=== PATIENT | female | born 1945 | race Caucasian/White ===

== ENCOUNTER → 2022-03-13 | Outpatient (CLI) | payer MEDICARE ==
--- NOTE | 2022-03-13 17:10 | US ---
EXAMINATION TYPE: US kidneys/renal and bladder DATE OF EXAM: 03/13/2022 COMPARISON: NONE CLINICAL HISTORY: R35.0 FREQUENCY OF MICTURITION. Left flank pain, gross hematuria EXAM MEASUREMENTS: Right Kidney: 9.2 x 4.2 x 3.9 cm Left Kidney: 9.3 x 3.4 x 5.4 cm Right Kidney: cysts = largest superior pole = 3.0 x 3.3 x 3.1cm Left Kidney: superior pole cyst 1.6 x 1.6 x 1.6cm. 9mm stone seen inferior pole Bladder: wnl There is no evidence for hydronephrosis at this point in time. No masses are identified. The urinar y bladder is anechoic. IMPRESSION: 1. No evidence of obstructive uropathy. 2. Nonobstructing left renal calculus.
== END | disposition home or self-care (01) ==
LOC: RADUSWWP 16:32
PROVIDERS: ATTEND Family Medicine
DX: N20.0 Calculus of kidney (principal)
CPT/HCPCS: 76770

== ENCOUNTER → 2022-03-21 | Outpatient (CLI) | payer MEDICARE ==
--- NOTE | 2022-03-21 14:09 | XR ---
EXAMINATION TYPE: XR KUB DATE OF EXAM: 03/21/2022 Comparison: None Clinical History: 77-year-old female N20.0 CALCULUS OF KIDNEY Findings: Moderate overall stool burden. Left-sided renal calculi measuring up to 6 mm. Larger aggregate cluste r measures up to 1.4 cm. Multiple pelvic phleboliths. Degenerative change L4-L5. Nonobstructive bowel gas pattern. Impression: Left-sided nephrolithiasis with individual stones measuring up to 6 mm. Moderate stool burden.
== END | disposition home or self-care (01) ==
LOC: RADXRMAIN 09:20
PROVIDERS: ATTEND Urology
DX: N20.0 Calculus of kidney (principal); R19.5 Other fecal abnormalities
CPT/HCPCS: 74018

== ENCOUNTER → 2022-04-06 | Outpatient (CLI) | payer MEDICARE ==
[2022-04-06 15:34] LABS: African American GFR (CKD) 42.5 (60.0-200.0); Anion Gap 13.8 mmol/L (10.00-18.00); BUN/Creat Ratio 29.57 Ratio (12.00-20.00); Blood Urea Nitrogen 41.4 mg/dL (9.0-27.0); Carbon Dioxide 21.2 mmol/L (20.0-27.5); Non-African American GFR(CKD) 36.7 (60.0-200.0); Potassium 4.6 mmol/L (3.5-5.5)
[2022-04-06 16:53] LABS: Basophils # (A) 0.01 X 10*3/uL (0.00-0.10); Basophils % (A) 0.1 %; Eosinophils # (A) 0.05 X 10*3/uL (0.04-0.35); Eosinophils % (A) 0.7 %; HCT 34.9 % (37.2-46.3); HGB 11.5 g/dL (12.0-15.0); Immature Grans, Automated 0.3 %; Lymphocytes # (A) 1.61 X 10*3/uL (0.90-5.00); Lymphocytes % (A) 21.2 %; MCV 100.3 fL (80.0-97.0); Mean Platelet Volume 10.5 fL (9.5-12.2); Monocytes # (A) 0.43 X 10*3/uL (0.20-1.00); Monocytes % (A) 5.7 %; NRBC Per 100 WBC 0 /100 WBCS (0.0-0.0); Neutrophils # (A) 5.48 X 10*3/uL (1.80-7.70); Platelet Count 311 X 10*3/uL (140-440); RBC 3.48 X 10*6/uL (4.10-5.20); RDW 12.3 % (11.5-14.5)
== END | disposition home or self-care (01) ==
LOC: LABWHC1 08:48
PROVIDERS: ATTEND Urology
DX: Z01.812 Encounter for preprocedural laboratory examination (principal); N20.0 Calculus of kidney
CPT/HCPCS: 80048; 85025

== ENCOUNTER 2022-04-13 05:37 | Day surgery (SDC) | payer MEDICARE ==
[2022-04-10 15:32] VITALS: BMI 19.3
--- NOTE | 2022-04-12 19:43 | P.GSHP ---
History of Present Illness H&P Date: 04/12/22 Chief Complaint: Left flank pain the patient is a 77-year-old white female with no prior history of urolithiasis. She presents with a one-month history of left lower back and flank pain. She also reports gross hematuria with activity. Renal ultrasound shows left renal calculi, but no evidence of hydronephrosis. KUB x-ray shows left renal calculi measuring up to 6 mm in size, with an aggregate of calculi measuring 1.4 cm. - Constitutional Constitutional: Denies chills, Denies fever - Gastrointestinal Gastrointestinal: Denies nausea, Denies vomiting - Genitourinary (Female) Genitourinary: Reports flank pain, Reports hematuria, Reports kidney stones Past Medical History Past Medical History: Thyroid Disorder Additional Past Medical History / Comment(s): Kidney stones History of Any Multi-Drug Resistant Organisms: None Reported Past Surgical History: Hysterectomy Additional Past Surgical History / Comment(s): Lasik surgery, carpal tunnel, thumb surgery, L breast bx. Past Anesthesia/Blood Transfusion Reactions: Motion Sickness Additional Past Anesthesia/Blood Transfusion Reaction / Comment(s): Gets dizzy with anesthesia. Smoking Status: Never smoker - Past Family History Mother Family Medical History: No Reported History Medications and Allergies Home Medications Medication Instructions Recorded Confirmed Type Ergocalciferol [Vitamin D2 (1250 1,250 mcg PO Q30D 04/10/22 04/10/22 History Mcg = 39133 Iu)] Fexofenadine HCl [Manjula Allergy] 60 mg PO DAILY PRN 04/10/22 04/10/22 History Ketorolac [Toradol] 10 mg PO Q6HR PRN 04/10/22 04/10/22 History Levothyroxine Sodium [Levoxyl] 88 mcg PO SUMOWEFRSA 04/10/22 04/10/22 History Allergies Allergy/AdvReac Type Severity Reaction Status Date / Time alendronate sodium Allergy Rash/Hives Verified 04/10/22 15:17 [From Fosamax] codeine Allergy Rash/Hives Verified 04/10/22 15:17 levothyroxine sodium Allergy Rash/Hives Verified 04/10/22 15:17 [From Synthroid] Sulfa (Sulfonamide Allergy Rash/Hives Verified 04/10/22 15:17 Antibiotics) Surgical - Exam - General well developed, well nourished, no distress - Neck no masses, trachea midline - Respiratory normal respiratory effort - Abdomen Abdomen: soft, non tender, no guarding, no rigid, no rebound - Psychiatric oriented to time, oriented to person, oriented to place, speech is normal, memory intact Results - Imaging Abdominal x-ray: report reviewed, image reviewed US - kidney/bladder: report reviewed Assessment and Plan (1) Calculus of kidney Status: Acute Code(s): N20.0 - CALCULUS OF KIDNEY SNOMED Code(s): 01314463 Plan: The patient was offered various treatment options, including observation, extracorporal shockwave lithotripsy (ESWL), ureteroscopy with holmium laser lithotripsy, and percutaneous nephrolithotomy. The pros and cons of each option were discussed in detail. The patient has elected to undergo left ureteroscopy with holmium laser lithotripsy and possible stone basketing. A ureteral stent will be placed. She has been made aware of potential risks, which include anesthesia, bleeding, infection, ureteral injury, and inability to remove all calculi. She is aware of the possible need for secondary procedure.
[2022-04-13] MEDS ORDERED: ONDANSETRON 4 MG/2 ML VIAL ONE (06:43)
[2022-04-13] MEDS ORDERED: LACTATED RINGERS 1,000 ML IV ONE ×3 (06:48→11:51)
[2022-04-13] MEDS ORDERED: LIDOCAINE 1% (10MG/ML) FOR IV START INTRADERMA ONE (06:48)
--- NOTE | 2022-04-13 06:53 | XR ---
EXAMINATION TYPE: XR KUB DATE OF EXAM: 04/13/2022 6:28 AM CLINICAL HISTORY: Left-sided kidney stone. TECHNIQUE: Single supine KUB image of the abdomen is obtained. COMPARISON: Most recent abdominal x-ray March 21, 2022. FINDINGS: There are 3-4 adjacent left renal calculi including 8 mm calculus at L2 level. No right-drew ed nephrolithiasis. Interval passage of 8 mm calculus to distal left ureter level in the left pelvis. Scattered small pelvic phleboliths redemonstrated. Overall nonobstructive bowel gas pattern. Disc space narrowing and sclerosis right L4-L5 level. IMPRESSION: As above. Overall nonobstructive bowel gas pattern.
[2022-04-13] MEDS ORDERED: DEXAMETHASONE SOD PHOSPHATE 4 MG/ML 1 ML VIAL IV ONE (07:00)
[2022-04-13] MEDS ORDERED: LEVOFLOXACIN 500MG-D5W PMX 500 MG in DEXTROSE/WATER 1 100ML.BAG IVPB STA (07:01)
[2022-04-13 07:07] LABS: Glucose,Whole Blood 77 mg/dL (70-110)
[2022-04-13] MEDS ORDERED: fentaNYL (PF) 50 MCG/ML 2 ML AMP ONE (07:10)
[2022-04-13] MEDS ORDERED: PROPOFOL 10 MG/ML 20 ML VIAL IV ONE (07:10)
[2022-04-13] MEDS ORDERED: MIDAZOLAM 2 MG/2 ML VIAL ONE (07:10)
[2022-04-13] MEDS ORDERED: GLYCOPYRROLATE 0.2 MG/ML 2 ML VIAL ONE (07:10)
[2022-04-13] MEDS ORDERED: LIDOCAINE 2% INJ 20 MG/ML (2 ML VIAL) ONE (07:10)
[2022-04-13] MEDS ORDERED: PHENYLEPHRINE-0.9% NACL SYG 1,000 MCG/10 ML SYRINGE ONE (07:10)
[2022-04-13] MEDS ORDERED: SUCCINYLCHOLINE CHLORIDE 200 MG/10 ML VIAL IV ONE (07:10)
[2022-04-13] MEDS ORDERED: IOPAMIDOL-370 50ML BTL MISCELLANE ONE (07:41)
[2022-04-13 09:26] VITALS: TEMP 97
--- NOTE | 2022-04-13 10:21 | FL ---
Fluoroscopy INDICATION: Pain, ureteral stent placement FINDINGS: Fluoroscopy time: 2 minutes 12 seconds. Images obtained: 12. Note is made of a filling defect within the distal left ureter. IMPRESSIONS: 1. Documentation of fluoroscopy.
[2022-04-13] MEDS ORDERED: HYDROmorphone 0.5 MG/0.5 ML SYRINGE IVP ONE (13:48)
[2022-04-13 14:29] VITALS: BP 142/72; PULSE 66; RESP 17
--- NOTE | 2022-04-15 14:47 | P.OP ---
Date of Procedure: 04/13/22 Preoperative Diagnosis: Left ureteral calculus, left renal calculi Postoperative Diagnosis: Same Procedure(s) Performed: Cystoscopy, bilateral retrograde pyelograms, left ureteroscopy with Holmium laser lithotripsy and stone basketing, left ureteral stent insertion Anesthesia: DOMINICKA Surgeon: Ayan Ramirez Estimated Blood Loss (ml): 10 IV fluids (ml): 800 Pathology: other (Calculus fragments, sent for chemical analysis) Condition: stable Disposition: PACU Indications for Procedure: The patient is a 77-year-old white female with no prior history of urolithiasis. She presents with a one-month history of left lower back and flank pain. She also reports gross hematuria with activity. Renal ultrasound shows left renal calculi, but no evidence of hydronephrosis. KUB x-ray shows left renal calculi measuring up to 6 mm in size, with an aggregate of calculi measuring 1.4 cm. Pre-operative KUB x-ray shows a left distal ureteral calculus. Operative Findings: 8 mm left distal ureteral calculus, fragmented and removed completely. Multiple left lower pole renal calculi, fragmented and removed Description of Procedure: The patient was taken to the operating room and placed in the dorsolithotomy position, with legs supported in Ranulfo stirrups. The external genitalia was prepped and draped sterilely. The 30 lens was used to introduce the 21-Indian Cha cystoscopic sheath through the urethra and into the bladder under direct vision. The bladder was examined in its entirety. Both ureteral orifices were normal anatomic location and configuration, and clear urine effluxed from both. No tumors or foreign bodies were seen. Using a 10-Indian cone-tipped catheter, bilateral retrograde pyelograms were performed. The right retrograde pyelogram was normal. The left retrograde py elogram confirmed that the left pelvic calcification was indeed a left distal ureteral calculus. The cystoscope was removed, and the Cha semirigid ureteroscope was advanced into the bladder. The left ureteral orifice was cannulated, and the ureteroscope was advanced up to the calculus. The 272 holmium laser probe was passed through the ureteroscope, and lithotripsy was performed. Virtual basketing was used to prevent the calculus from refluxing proximally, and as fragments broke away from the calculus they were removed using a 1.9-Indian nitinol basket. This was continued until the calculus had been removed in its entirety. Evaluation of the ureter showed mild mucosal inflammation, no evidence of ureteral perforation. A 0.038 inch Glidewire was passed through the ureteroscope and advanced up to the left renal pelvis. The ureteroscope was removed, and an 11/13-Indian ureteral access catheter was passed over the wire, up to the proximal ureter. The Cha Clickpassra flexible ureteroscope was then passed through the ureteral access catheter sheath and advanced under direct vision up to the renal pelvis. Several old clots were seen. Multiple calculi were seen within 2 lower pole calyces. No calculi were seen elsewhere in the kidney. The 272 micron Holmium laser probe was passed through the ureteroscope, and lithotripsy was performed. The calculi were treated using a combination of dusting and fragmenting, and all calculus fragments exceeding 1 mm in size were removed using a 1.9-Indian nitinol basket. Fluoroscopy upon completion showed no residual calculi. Once the calculi had been successfully removed, the ureteroscope was slowly withdrawn under direct vision. Pullout ureteroscopy showed no evidence of ureteral trauma. The Glidewire was passed through the ureteral access catheter sheath, which was removed. The Glidewire was backloaded into the cystoscope, which was advanced into the bladder. A 24 cm, 6-Indian double-J ureteral stent was placed over the wire. Proper stent positioning was verified fluoroscopically and endoscopically. The bladder was emptied and the cystoscope removed. The patient tolerated the procedure well and was taken to the recovery room in stable condition. [facility] Report: Procedure Acuity: Elective Stone Size and Location: 8 mm, left distal ureter. Multiple left renal calculi. Ureteral Dilation: No Ureteral Access Sheath Used: Yes Stone Sent for Analysis: Yes All Stones/Fragments Were Removed with a Basket: Yes Complications: No Preoperative Antibiotics Given: Yes Stent Placed: Yes If Stent Placed, Was String Left Attached: No If Stent Placed, When is it to be Removed: 2 weeks Discharge Medications: Tamsulosin, Toradol. Tolterodine
== END 2022-04-13 14:30 | disposition home or self-care (01) ==
LOC: OR 05:37
PROVIDERS: ATTEND Urology
DX: N20.2 Calculus of kidney with calculus of ureter (principal); E07.9 Disorder of thyroid, unspecified; Z98.890 Other specified postprocedural states; Z87.442 Personal history of urinary calculi; Z90.710 Acquired absence of both cervix and uterus; I87.8 Other specified disorders of veins; Z79.1 Long term (current) use of non-steroidal anti-inflammatories (NSAID); Z79.899 Other long term (current) drug therapy; Z88.2 Allergy status to sulfonamides; Z88.5 Allergy status to narcotic agent; Z88.8 Allergy status to other drugs, medicaments and biological substances; Z79.890 Hormone replacement therapy
CPT/HCPCS: 52356; 82365; 74420; 74018; C2625; C1758; C1769; J2250; J0330; J1100; J0690; J2405; J3010; J2370; J2704; J1170; Q9967; J2001

== ENCOUNTER → 2022-04-19 | Outpatient (CLI) | payer MEDICARE ==
--- NOTE | 2022-04-19 11:02 | XR ---
EXAMINATION TYPE: XR KUB DATE OF EXAM: 04/19/2022 COMPARISON: 04/13/2022 INDICATION: Left renal stone TECHNIQUE: Single view abdomen supine view FINDINGS: There is a normal bowel gas pattern. Fecal debris is within the colon. Psoas margins are normal. No organomegaly is present. There is a double pigtail catheter present on the left. No suspicious renal or ureteral stones are id entified. Punctate 0.3 cm calcification adjacent to the distal ureteral stent is not excluded. IMPRESSION: 1. 0.3 cm residual calcification may be within the left hemipelvis adjacent to the ureteral stent.
== END | disposition home or self-care (01) ==
LOC: RADXRMAIN 07:30
PROVIDERS: ATTEND Urology
DX: N20.0 Calculus of kidney (principal)
CPT/HCPCS: 74018

== ENCOUNTER 2022-05-01 11:02 | Emergency (ER) | payer MEDICARE ==
[2022-05-01 11:20] VITALS: RESP 18
[2022-05-01 11:31] LABS: Glucose,Whole Blood 110 mg/dL (70-110)
--- NOTE | 2022-05-01 12:15 | ED ---
General Adult HPI - General Chief complaint: Dizziness Stated complaint: Near syncope Time Seen by Provider: 05/01/22 11:40 Source: patient Mode of arrival: EMS Limitations: no limitations - History of Present Illness Initial comments: Dictation was produced using Lala dictation software. please excuse any grammatical, word or spelling errors. Chief Complaint: 77-year-old female presents emergency department after presyncopal episode History of Present Illness: Is 77-year-old female with no significant comorbidities. She states she was at home when she had a presyncopal event. She had this event while home health care nurse was at the house tending to her is currently on effusions. Patient states that recently she had a urologic procedure done. She denies any complications or issues afterward. She woke up feeling in her usual state of health. Patient denies any history of cardiac disease. Patient denies any full loss of consciousness. Blood pressure was checked by the home visiting nurse found to be low for brief state. Patient denies any symptoms at this time The ROS documented in this emergency department record has been reviewed and confirmed by me. Those systems with pertinent positive or negative responses have been documented in the HPI. All other systems are other negative and/or noncontributory. PHYSICAL EXAM: General Impression: Alert and oriented x3, not in acute distress HEENT: Normocephalic atraumatic, extra-ocular movements intact, pupils equal and reactive to light bilaterally, mucous membranes moist. Cardiovascular: Heart regular rate and rhythm Chest: Able to complete full sentences, no retractions, no tachypnea Abdomen: abdomen soft, non-tender, non-distended, no organomegaly Musculoskeletal: Pulses present and equal in all extremities, no peripheral edema Motor: no focal deficits noted Neurological: CN II-XII grossly intact, no focal motor or sensory deficits noted Skin: Intact with no visualized rashes Psych: Normal affect and mood ED course: 77-year-old female presents emergency department for episode of presyncope. Likely vasovagal. She does not have any cardiac risk factors. EKG is unremarkable. Vital signs upon arrival are within acceptable limits. Nursing notes and chart review was performed EKG interpreted by me: Ventricular rate 100, normal sinus rhythm,. Interval 112, QRS 64, QTc 459. No NJ prolongation, no QTC prolongation, no ST or T-wave changes noted. Overall, this EKG is unremarkable Laboratory evaluation obtained. CBC unremarkable. Metabolic panel is within acceptable limits. Rest of labs unremarkable. Patient observed in emergency department for 2 hours and 30 minutes. Reevaluated at bedside at 1:3 PM found with stable medical condition. Patient be discharged. Advised follow-up with primary care doctor. Was pt. sent in by a medical professional or institution? @No Did you speak to anyone other than the patient for history? @Daughter at the bedside Did you review nursing and triage notes? @Yes, agree Were old charts reviewed? @No Differential Diagnosis? @MDM Differential Syncope: Valvular disease, hypertrophic cardiomyopathy, pulmonary embolism, tamponade, tachycardia, bradycardia, ID, hypovolemia, hemorrhage, dissection, anemia, intracranial hemorrhage, seizure, hypoglycemia, carbon monoxide poisoning this is not meant to be an all-inclusive list. EKG interpreted by me (3pts min.)? @Yes, see above X-rays interpreted by me (1pt min.)? @ [none] CT interpreted by me (1pt min.)? @ [none] U/S interpreted by me (1pt. min.)? @ [none] What testing was considered but not performed? (CT, X-rays, U/S, labs)? Why? @No What meds were considered but not given? Why? @ [none] Did you discuss the management of the patient with other professionals? @No Did you reconcile home meds? @ [none] Was smoking cessation discussed for >3mins.? @ [none] Was critical care preformed (if so, how long)? @ [none] Were there social determinants of health that impacted care today? How? (Homelessness, low income, unemployed, alcoholism, drug addiction, transportation, low edu. Level, literacy, decrease access to med. care, assisted, rehab)? @No Was there de-escalation of care discussed even if they declined? (Discuss DNR or withdrawal of care, Hospice)? @Not applicable What co-morbidities impacted this encounter? (DM, HTN, Smoking, COPD, CAD, Can cer, CVA, Hep., AIDS, mental health diagnosis, sleep apnea, morbid obesity)? @None Was patient admitted / discharged? @Discharge Undiagnosed new problem with uncertain prognosis? @ [none] Drug Therapy requiring intensive monitoring for toxicity (Heparin, Nitro, Insulin, Cardizem)? @ [none] Were any procedures done? @ [none] Diagnosis/symptom? @Presyncope, likely vasovagal Acute, or Chronic, or Acute on Chronic? @Acute Uncomplicated (without systemic symptoms) or Complicated (systemic symptoms)? @Uncomplicated Side effects of treatment? @ [none] Exacerbation, Progression, or Severe Exacerbation] @ [no] Poses a threat to life or bodily function? @ [no] - Related Data Home Medications Medication Instructions Recorded Confirmed Ergocalciferol [Vitamin D2 (1250 1,250 mcg PO Q30D 04/10/22 05/01/22 Mcg = 22645 Iu)] Fexofenadine HCl [Manjula Allergy] 60 mg PO DAILY PRN 04/10/22 05/01/22 Levothyroxine Sodium [Levoxyl] 88 mcg PO DAILY 04/10/22 05/01/22 Ascorbic Acid [Vitamin C] 2,000 mg PO DAILY 05/01/22 05/01/22 Aspirin EC [Ecotrin Low Dose] 81 mg PO DAILY 05/01/22 05/01/22 Biotin 2000mg 2,000 mg PO DAILY 05/01/22 05/01/22 Calcifood 1 tab PO BID 05/01/22 05/01/22 Yrn Seeds 1 tbsp PO DAILY 05/01/22 05/01/22 Co Q-10 100mg 100 mg PO DAILY 05/01/22 05/01/22 Cranberry Fruit Extract [Cranberry] 400 mg PO DAILY 05/01/22 05/01/22 Flax Seed 1300mg 1 cap PO DAILY 05/01/22 05/01/22 Devon Prime 1 cap PO DAILY 05/01/22 05/01/22 Pro-Symbiotic 1 cap PO DAILY 05/01/22 05/01/22 Quercetin 800mg 1 tab PO BID 05/01/22 05/01/22 Turmeric Root Extract [Turmeric] 750 mg PO BID 05/01/22 05/01/22 Zinc Gluconate [Zinc] 50 mg PO DAILY 05/01/22 05/01/22 Previous Rx's Medication Instructions Recorded Tamsulosin [Flomax] 0.4 mg PO DAILY #21 cap 04/13/22 Tolterodine ER [Detrol LA] 4 mg PO DAILY #21 cap 04/13/22 Allergies Allergy/AdvReac Type Severity Reaction Status Date / Time alendronate sodium Allergy Rash/Hives Verified 05/01/22 12:22 [From Fosamax] cephalexin [From Keflex] Allergy Rash/Hives Verified 05/01/22 12:22 levothyroxine sodium Allergy Immediate Verified 05/01/22 12:22 [From Synthroid] migraine headaches Sulfa (Sulfonamide Allergy Rash/Hives, Verified 05/01/22 12:22 Antibiotics) Swelling, Lumps codeine AdvReac Loss of Verified 05/01/22 12:22 eyesight risedronate sodium AdvReac Muscle, Verified 05/01/22 12:22 [From Actonel] jaw and tooth pain estrogen patch AdvReac "Sugar Uncoded 05/01/22 12:22 level problems" Review of Systems ROS Statement: Those systems with pertinent positive or pertinent negative responses have been documented in the HPI. ROS Other: All systems not noted in ROS Statement are negative. Past Medical History Past Medical History: Thyroid Disorder Additional Past Medical History / Comment(s): Kidney stones History of Any Multi-Drug Resistant Organisms: None Reported Past Surgical History: Hysterectomy Additional Past Surgical History / Comment(s): Lasik surgery, carpal tunnel, thumb surgery, L breast bx. Past Anesthesia/Blood Transfusion Reactions: Motion Sickness Additional Past Anesthesia/Blood Transfusion Reaction / Comment(s): Gets dizzy with anesthesia. Past Psychological History: No Psychological Hx Reported Smoking Status: Never smoker Past Alcohol Use History: None Reported Past Drug Use History: None Reported - Past Family History Mother Family Medical History: No Reported History General Exam Limitations: no limitations Course Vital Signs 05/01/22 05/01/22 11:07 11:20 Temperature 97.6 F Pulse Rate 98 96 Respiratory 18 18 Rate Blood Pressure 107/77 O2 Sat by Pulse 100 100 Oximetry Medical Decision Making - Lab Data Result diagrams: 05/01/22 11:29 05/01/22 11:29 Lab Results 05/01/22 05/01/22 05/01/22 Range/Units 11:27 11:29 11:29 WBC 4.7 (3.8-10.6) k/uL RBC 3.42 L (3.80-5.40) m/uL Hgb 11.7 (11.4-16.0) gm/dL Hct 33.3 L (34.0-46.0) % MCV 97.5 (80.0-100.0) fL MCH 34.2 (25.0-35.0) pg MCHC 35.1 (31.0-37.0) g/dL RDW 12.6 (11.5-15.5) % Plt Count 224 (150-450) k/uL MPV 8.7 Neutrophils % 69 % Lymphocytes % 25 % Monocytes % 5 % Eosinophils % 1 % Basophils % 0 % Neutrophils # 3.2 (1.3-7.7) k/uL Lymphocytes # 1.2 (1.0-4.8) k/uL Monocytes # 0.2 (0-1.0) k/uL Eosinophils # 0.0 (0-0.7) k/uL Basophils # 0.0 (0-0.2) k/uL Sodium 136 L (137-145) mmol/L Potassium 3.9 (3.5-5.1) mmol/L Chloride 106 (98-107) mmol/L Carbon Dioxide 23 (22-30) mmol/L Anion Gap 7 mmol/L BUN 29 H (7-17) mg/dL Creatinine 0.88 (0.52-1.04) mg/dL Est GFR (CKD-EPI)AfAm 75 (>60 ml/min/1.73 sqM) Est GFR (CKD-EPI)NonAf 65 (>60 ml/min/1.73 sqM) Glucose 102 H (74-99) mg/dL POC Glucose (mg/dL) 110 (70-110) mg/dL POC Glu Manager Of Business ID Tita Card[place]ota Calcium 9.0 (8.4-10.2) mg/dL Total Bilirubin 0.6 (0.2-1.3) mg/dL AST 26 (14-36) U/L ALT 19 (4-34) U/L Alkaline Phosphatase 72 (38-126) U/L Total Protein 6.7 (6.3-8.2) g/dL Albumin 4.3 (3.5-5.0) g/dL TSH 0.055 L (0.465-4.680) mIU/L Disposition Clinical Impression: Syncope Disposition: HOME SELF-CARE Condition: Good Instructions (If sedation given, give patient instructions): Syncope (ED) Is patient prescribed a controlled substance at d/c from ED?: No Referrals: Doroteo Abraham MD [Primary Care Provider] - 1-2 days Time of Disposition: 13:31
[2022-05-01 12:24] LABS: Basophils % (A) 0 %; Eosinophils % (A) 1 %; HCT 33.3 % (34.0-46.0); HGB 11.7 gm/dL (11.4-16.0); Lymphocytes # (A) 1.2 k/uL (1.0-4.8); Lymphocytes % (A) 25 %; MCH 34.2 pg (25.0-35.0); MCHC 35.1 g/dL (31.0-37.0); MCV 97.5 fL (80.0-100.0); Mean Platelet Volume 8.7; Monocytes # (A) 0.2 k/uL (0-1.0); Monocytes % (A) 5 %; Neutrophils # (A) 3.2 k/uL (1.3-7.7); Neutrophils % (A) 69 %; Platelet Count 224 k/uL (150-450); RBC 3.42 m/uL (3.80-5.40); RDW 12.6 % (11.5-15.5); WBC 4.7 k/uL (3.8-10.6)
[2022-05-01 12:30] LABS: Albumin 4.3 g/dL (3.5-5.0); Potassium 3.9 mmol/L (3.5-5.1); Total Bilirubin 0.6 mg/dL (0.2-1.3); Total Protein 6.7 g/dL (6.3-8.2)
[2022-05-01 13:31] VITALS: BP 114/64; PULSE 87
[2022-05-01 13:55] VITALS: TEMP 97.4
== END 2022-05-01 13:40 | disposition home or self-care (01) ==
LOC: SUPCPDRO 11:02 → EC 11:02
DX: R55 Syncope and collapse (principal); E07.9 Disorder of thyroid, unspecified; Z88.8 Allergy status to other drugs, medicaments and biological substances; Z88.2 Allergy status to sulfonamides; Z79.890 Hormone replacement therapy; Z79.82 Long term (current) use of aspirin
CPT/HCPCS: 36415; 80053; 84443; 85025; 93005; 99284

== ENCOUNTER → 2022-06-02 | Outpatient (CLI) | payer MEDICARE ==
--- NOTE | 2022-06-02 07:48 | US ---
EXAMINATION TYPE: US kidneys/renal and bladder DATE OF EXAM: 06/02/2022 COMPARISON: Renal ultrasound March 13, 2022 CLINICAL HISTORY: N20.1 N20.0. hx renal stones and cysts. EXAM MEASUREMENTS: Right Kidney: 10.2 x 3.7 x 3.3 cm Left Kidney: 8.9 x 3.4 x 3.6 cm Right Kidney: Two cysts seen. 1- Superior lateral = 3.3 x 3.6 x 2.5 cm. 2- superior lateral = 1.3 x 1.3 x 1.3 cm. Medial anechoic lesion at hilum = 1.3 x 0.8 cm. Left Kidney: Lower pole echogenic focus = 0.5 cm. Superior mid cyst = 1.3 x 1.3 x 1.5 cm. Bladder: distended, anechoic Bilateral Jets not seen Simple appearing thin-walled cysts are redemonstrated bilaterally. The urinary bladder is adequately distended. Bilateral ureteral jets are and not seen. Left kidney shows 5 mm lower pole hyperechoic focus could reflect nonobstructing calculus similar to prior IMPRESSION: No hydronephrosis seen bilaterally. No significant change from prior ultrasound.
== END | disposition home or self-care (01) ==
LOC: RADUSWWP 06:45
PROVIDERS: ATTEND Urology
DX: N20.2 Calculus of kidney with calculus of ureter (principal)
CPT/HCPCS: 76770

== ENCOUNTER → 2022-09-01 | Outpatient (CLI) | payer MEDICARE ==
[2022-09-01 11:26] LABS: Anion Gap 7.4 mmol/L (10.00-18.00); Carbon Dioxide 28.6 mmol/L (20.0-27.5)
== END | disposition home or self-care (01) ==
LOC: LABWHC1 06:44
PROVIDERS: ATTEND Urology
DX: R82.991 Hypocitraturia (principal)
CPT/HCPCS: 36415; 80051

== ENCOUNTER → 2022-09-26 | Outpatient (CLI) | payer MEDICARE ==
--- NOTE | 2022-09-26 08:16 | CT ---
EXAMINATION TYPE: CT sinus wo con DATE OF EXAM: 09/26/2022 COMPARISON: None HISTORY: Chronic sinusitis CT DLP: 612.[address] of the paranasal sinuses was performed in the axial and coronal planes. Bone and soft tissue settings are submitted. The paranasal sinuses demonstrate normal aeration and development. The paranasal sinuses are free of mucosal thickening or air fluid level. The osteal meatal units are patent bilaterally. The nasal septum is midline. No bony destructive changes are seen within the field of view. IMPRESSION: Normal unenhanced CT of the paranasal sinuses.
== END | disposition home or self-care (01) ==
LOC: RADCTMAIN 07:48
PROVIDERS: ATTEND Family Medicine
DX: J32.9 Chronic sinusitis, unspecified (principal)
CPT/HCPCS: 70486

== ENCOUNTER → 2023-03-07 | Outpatient (CLI) | payer MEDICARE ==
--- NOTE | 2023-03-07 09:51 | US ---
EXAMINATION TYPE: US abdomen complete DATE OF EXAM: 03/07/2023 COMPARISON: 06/02/2022 CLINICAL INDICATION: Female, 78 years old with history of R10.11 RIGHT UPPER QUADRANT PAIN; RUQ pain TECHNIQUE: Multiple sonographic images of the abdomen are obtained. FINDINGS: EXAM MEASUREMENTS: Liver Length: 13.1 cm Gallbladder Wall: 0.1 cm CBD: 0.4 cm Spleen: 8.2 cm Right Kidney: 8.6 X 4.1 X 3.6 cm Left Kidney: 8.6 X 3.6 X 3.9 cm Pancreas: Tail obscured by overlying bowel gas Liver: wnl Gallbladder: No stones or wall thickening seen Evidence for sonographic Pastrana's sign: neg CBD: wnl Spleen: wnl Right Kidney: Mild pelviectasis. No calyceal dilatation to suggest hydronephrosis. Two cysts seen. 1- superior mid = 2.9 x 3.4 x 3.5 cm, 2- superior lateral= 1.4 x 1.2 x 1.3 cm Left Kidney: Inferior pole obscured by bowel gas. No hydronephrosis. Upper IVC: wnl Abd Aorta: No AAA visualized at time of scan IMPRESSION: 1. No gallstones or biliary ductal dilatation. 2. A couple renal cortical cysts right kidney measuring 3.5 cm and 1.4 cm (similar to the prior exam) . r
== END | disposition home or self-care (01) ==
LOC: RADUSWWP 07:43
PROVIDERS: ATTEND Family Medicine
DX: N28.1 Cyst of kidney, acquired (principal); R10.11 Right upper quadrant pain
CPT/HCPCS: 76700

== ENCOUNTER → 2023-11-26 | Outpatient (CLI) | payer MEDICARE ==
--- NOTE | 2023-11-26 08:53 | XR ---
EXAMINATION TYPE: XR KUB DATE OF EXAM: 11/26/2023 HISTORY: Pain Comparison: None.Single KUB is submitted for interpretation. Findings: Right renal calculi: None Visualized. Right ureteral calculi: None Visualized. Left renal calculi: Left renal calculi totaling 4 in number measuring up to 5 mm. Left ureteral calculi: None Visualized. Pelvic calcifications: Left-sided pelvic phleboliths noted. Bowel gas pattern is unremarkable. No free air. No mass effects. IMPRESSION: 1. As above
== END | disposition home or self-care (01) ==
LOC: RADXRMAIN 08:37
PROVIDERS: ATTEND Urology
DX: N20.2 Calculus of kidney with calculus of ureter (principal); I86.2 Pelvic varices; N23 Unspecified renal colic
CPT/HCPCS: 74018

== ENCOUNTER → 2024-07-01 | Outpatient (CLI) | payer MEDICARE ==
[2024-07-01 11:03] LABS: HCT 35.8 % (37.2-46.3); HGB 11.8 g/dL (12.0-15.0); MCH 32.9 pg (27.0-32.0); MCV 99.7 FL (80.0-97.0); Mean Platelet Volume 10.4 FL (9.5-12.2); NRBC Per 100 WBC 0 X 10*3/uL (0.00-0.01); Platelet Count 256 X 10*3/uL (140-440); RBC 3.59 X 10*6/uL (4.10-5.20); RDW 12.1 % (11.5-14.5); WBC 3.56 X 10*3/uL (4.50-10.00)
[2024-07-01 11:04] LABS: Basophils # (A) 0.01 X 10*3/uL (0.00-0.10); Basophils % (A) 0.3 %; Eosinophils # (A) 0.06 X 10*3/uL (0.04-0.35); Eosinophils % (A) 1.7 %; Immature Grans, Automated 0 %; Lymphocytes # (A) 1.37 X 10*3/uL (0.90-5.00); Lymphocytes % (A) 38.5 %; Monocytes # (A) 0.32 X 10*3/uL (0.20-1.00); Neutrophils % (A) 50.5 %
[2024-07-01 11:28] LABS: Blood Urea Nitrogen 19.6 mg/dL (9.0-27.0); Calcium 9.8 mg/dL (8.7-10.3); Carbon Dioxide 28.8 mmol/L (21.6-31.8); Chloride 101 mmol/L (96-109); Glucose 90 mg/dL (70-110); Sodium 138 mmol/L (135-145)
== END | disposition home or self-care (01) ==
LOC: LABPAT 06:53
PROVIDERS: ATTEND Urology
DX: Z01.812 Encounter for preprocedural laboratory examination (principal); N20.2 Calculus of kidney with calculus of ureter
CPT/HCPCS: 80048; 85025

== ENCOUNTER 2024-07-17 07:24 | Day surgery (SDC) | payer MEDICARE ==
--- NOTE | 2024-07-16 21:49 | P.GSHP ---
History of Present Illness H&P Date: 07/16/24 Chief Complaint: Back and abdominal pain The patient is a 79-year-old white female with a history of kidney stones. Her stones are of calcium oxalate composition and related to hypocitraturia. Potassium citrate has been prescribed but she has tolerated it poorly. For the past 2 months, she has experienced left sided abdominal and back pain. CT scan shows a 14 mm left UPJ calculus and a 16 mm left lower pole renal calculus, with no evidence of hydronephrosis. - Constitutional Constitutional: Denies chills, Denies fever - Gastrointestinal Gastrointestinal: Denies nausea, Denies vomiting - Genitourinary (Female) Genitourinary: Reports flank pain, Reports hematuria, Reports kidney stones Past Medical History Past Medical History: Thyroid Disorder Additional Past Medical History / Comment(s): Kidney stones, hypothyroidism, hypoglycemia History of Any Multi-Drug Resistant Organisms: None Reported Past Surgical History: Appendectomy, Hysterectomy, Orthopedic Surgery Additional Past Surgical History / Comment(s): Lasik surgery, bilat. CTR, Rt. thumb arthroplasty, Lt. breast bx. Past Anesthesia/Blood Transfusion Reactions: Motion Sickness Additional Past Anesthesia/Blood Transfusion Reaction / Comment(s): Gets dizzy with anesthesia. Smoking Status: Never smoker - Past Family History Mother Family Medical History: No Reported History Medications and Allergies Home Medications Medication Instructions Recorded Confirmed Type Ergocalciferol [Vitamin D2 (1250 1,250 mcg PO Q30D 04/10/22 07/15/24 History Mcg = 38310 Iu)] Fexofenadine HCl [Manjula Allergy] 60 mg PO DAILY PRN 04/10/22 07/15/24 History Levothyroxine Sodium [Levoxyl] 88 mcg PO DAILY 04/10/22 07/15/24 History Ascorbic Acid [Vitamin C] 2,000 mg PO DAILY 05/01/22 07/15/24 History Aspirin EC [Ecotrin Low Dose] 81 mg PO DAILY 05/01/22 07/15/24 History Calcifood 1 tab PO BID 05/01/22 07/15/24 History Co Q-10 100mg 100 mg PO DAILY 05/01/22 07/15/24 History Cranberry Fruit Extract [Cranberry] 400 mg PO DAILY 05/01/22 07/15/24 History Flax Seed 1300mg 1 cap PO DAILY 05/01/22 07/15/24 History Pro-Symbiotic 1 cap PO DAILY 05/01/22 07/15/24 History Quercetin 800mg 1 tab PO BID 05/01/22 07/15/24 History Turmeric Root Extract [Turmeric] 750 mg PO BID 05/01/22 07/15/24 History Zinc Gluconate [Zinc] 50 mg PO DAILY 05/01/22 07/15/24 History Theralith Xr 2 tab PO BID 07/15/24 History Allergies Allergy/AdvReac Type Severity Reaction Status Date / Time alendronate sodium Allergy Rash/Hives Verified 07/15/24 11:40 [From Fosamax] cephalexin [From Keflex] Allergy Rash/Hives Verified 07/15/24 11:40 levothyroxine sodium Allergy Immediate Verified 07/15/24 11:40 [From Synthroid] migraine headaches Sulfa (Sulfonamide Allergy Rash/Hives, Verified 07/15/24 11:40 Antibiotics) Swelling, Lumps ciprofloxacin AdvReac joint pain Verified 07/15/24 11:40 knuckles codeine AdvReac Loss of Verified 07/15/24 11:40 eyesight cortisone AdvReac migraines,"altered Verified 07/15/24 11:40 metabolism" risedronate sodium AdvReac Muscle, Verified 07/15/24 11:40 [From Actonel] jaw and tooth pain tamsulosin AdvReac syncope Verified 07/15/24 11:40 estrogen patch AdvReac "Sugar Uncoded 07/15/24 11:40 level problems" Surgical - Exam - General well developed, well nourished, no distress - Respiratory normal respiratory effort - Psychiatric oriented to time, oriented to person, oriented to place, speech is normal, memory intact Results - Imaging CT scan - abdomen: report reviewed, image reviewed Assessment and Plan (1) Calculus of kidney Status: Acute Code(s): N20.0 - CALCULUS OF KIDNEY SNOMED Code(s): 04019514 Plan: Cystoscopy, left ureteroscopy with Holmium laser lithotripsy and stone basketing, left ureteral stent insertion. The procedure has been reviewed in detail with the patient. She is aware of risks, which include anesthesia, bleeding, infection, and ureteral injury. It is anticipated that a staged procedure will be required, given the stone burden, and she is scheduled to undergo a secondary procedure in August 07, 2024.
[~2024-07-17 07:24] MED LIST: LIDOCAINE 1% (10MG/ML) FOR IV START INTRADERMA PRN; droPERidol 2.5 MG/ML VIAL IVP ONE
[2024-07-17] MEDS: IV FLUID CONTINUATION 1,000 ML IV ONE (07:55)
--- NOTE | 2024-07-17 07:58 | XR ---
EXAMINATION TYPE: XR KUB DATE OF EXAM: 07/17/2024 7:38 AM COMPARISON: 11/26/2023 CLINICAL INDICATION: Female, 79 years old with history of L UPJ L Renal Calculi N20.0 N20.1; [facility] TECHNIQUE: One radiographic view of the abdomen was obtained. FINDINGS: The bowel gas pattern is nonspecific without dilated loops of small or large bowel. . Fecal material and gas are demonstrated throughout the colon and rectum. There is no evidence for organome dannielle or pneumoperitoneum. Degeneration changes of the spine. No acute osseous process. Left renal c alculi measuring up to 12 mm at the ureteropelvic junction and 16 mm at the left renal sinus. These a re increased in size in the renal sinus and new at the. Pelvic sinus/hilum. Pelvic phlebolith is note d. IMPRESSION: Left renal sinus calculus and ureteropelvic junction calculus present. [facility], , 07/17/2024 7:56 AM
[2024-07-17 08:11] VITALS: RESP 16; TEMP 98.4
[2024-07-17] MEDS: LACTATED RINGERS 1,000 ML IV SCH (08:25)
[2024-07-17] MEDS: ONDANSETRON 4 MG/2 ML VIAL IVP ONE (08:26)
[2024-07-17] MEDS: DEXAMETHASONE SOD PHOSPHATE 4 MG/ML 1 ML VIAL IV ONE (08:27)
[2024-07-17 08:30] LABS: Glucose,Whole Blood 92 mg/dL (70-110)
[2024-07-17] MEDS ORDERED: LEVOFLOXACIN 500MG-D5W PMX 500 MG in DEXTROSE/WATER 1 100ML.BAG IVPB ONE (09:15)
[2024-07-17] MEDS: MIDAZOLAM 2 MG/2 ML VIAL IV STA (09:34)
[2024-07-17] MEDS ORDERED: NEOSTIGMINE 1 MG/ML 10 ML VIAL ONE (09:56)
[2024-07-17] MEDS ORDERED: PHENYLEPHRINE-0.9% NACL SYG 1,000 MCG/10 ML SYRINGE ONE (09:56)
[2024-07-17] MEDS ORDERED: LIDOCAINE 1% INJ 10MG/ML (20 ML MDV) ONE (09:56)
[2024-07-17] MEDS ORDERED: SUCCINYLCHOLINE CHLORIDE 200 MG/10 ML VIAL IV ONE (09:56)
[2024-07-17] MEDS ORDERED: ROCURONIUM 10 MG/ML (5 ML VIAL) IV ONE (09:56)
[2024-07-17] MEDS ORDERED: PROPOFOL 10 MG/ML 20 ML VIAL IV ONE (09:56)
[2024-07-17] MEDS ORDERED: fentaNYL (PF) 50 MCG/ML 2 ML AMP ONE (09:56)
[2024-07-17] MEDS ORDERED: GLYCOPYRROLATE 0.2 MG/ML 2 ML VIAL ONE (09:56)
[2024-07-17] MEDS: LACTATED RINGERS 1,000 ML IV ONE ×2 (12:00→16:08)
--- NOTE | 2024-07-17 12:19 | FL ---
Fluoroscopy History: CYSTOSCOPY LITHOTRPSY LEFT RENAL CALCULI cysto left renal stone FL time 48 seconds, DAP [id number], 10 images sent into PACS, Dr Ramirez [facility], , 07/17/2024 12:17 PM
[2024-07-17] MEDS: fentaNYL (PF) 50 MCG/ML 2 ML AMP IV PRN (12:35)
[2024-07-17 12:42] LABS: Glucose,Whole Blood 100 mg/dL (70-110)
--- NOTE | 2024-07-17 12:46 | P.OP ---
Date of Procedure: 07/17/24 Preoperative Diagnosis: Left ureteral calculus, left renal calculus Postoperative Diagnosis: Same Procedure(s) Performed: Cystoscopy, left ureteroscopy with Holmium laser lithotripsy and stone basketing, left ureteral stent insertion Anesthesia: DOMINICKA Surgeon: Ayan Ramirez Estimated Blood Loss (ml): 5 IV fluids (ml): 700 Pathology: none sent Condition: stable Disposition: PACU Indications for Procedure: The patient is a 79-year-old white female with a history of kidney stones. Her stones are of calcium oxalate composition and related to hypocitraturia. Potassium citrate has been prescribed but she has tolerated it poorly. For the past 2 months, she has experienced left sided abdominal and back pain. CT scan shows a 14 mm left UPJ calculus and a 16 mm left lower pole renal calculus, with no evidence of hydronephrosis. Operative Findings: Left proximal ureteral calculus, fragmented and removed completely. Left renal calculus, fragmented. Description of Procedure: The patient was taken to the operating room and placed in the dorsolithotomy position, with legs supported in Ranulfo stirrups. The external genitalia was prepped and draped sterilely. The 30 lens was used to introduce the 21-Bermudian Cha cystoscopic sheath through the urethra and into the bladder under direct vision. The bladder was examined in its entirety. Both ureteral orifices were normal anatomic location and configuration. No tumors or foreign bodies were seen. A 0.038 inch Glidewire was passed through the cystoscope. The left ureteral orifice was cannulated, and the Glidewire was advanced up to the renal pelvis. The cystoscope was removed, and an 11/13-Bermudian ureteral access catheter was passed over the wire, up to the proximal ureter with care taken to leave the access catheter distal to the left proximal ureteral calculus. The Cha Cobra flexible ureteroscope was then passed through the ureteral access catheter sheath, up to the stone. The 272 micron Holmium laser probe was passed through the ureteroscope, and lithotripsy was performed. The calculus was dense, composed of calcium oxalate monohydrate, and it was difficult to dust the calculus. The calculus fragmented well, and the calculus fragments passed distally. Several that did not pass distally were removed using a 1.9 Bermudian 0 tip nitinol basket. After removing the ureteral calculus in its entirety, the ureteroscope was advanced up to the renal pelvis, where the larger calculus was identified. As the calculus fragmented, portions of the calculus refluxed into a calyx, where lithotripsy was continued. Multiple calculus fragments were removed using the nitinol basket, with the remaining fragments treated via popcorning. Once this was completed, no calculi were seen on fluoroscopy and there were no calculus fragments exceeding 1 mm in size. Pullout ureteroscopy showed no evidence of ureteral trauma. The Glidewire was passed through the ureteroscope, which was removed along with the ureteral access catheter sheath. The Glidewire was backloaded into the cystoscope, which was passed into the bladder. A 24 cm, 4.8 Bermudian double-J ureteral stent was placed over the wire. Proper stent positioning was verified fluoroscopically and endoscopically. The bladder was emptied and the cystoscope removed. The patient tolerated the procedure well and was taken to the recovery room in stable condition. [facility] Report: Procedure Acuity: Elective Stone Size and Location: Ureteral Dilation: No Ureteral Access Sheath Used: Yes Stone Sent for Analysis: No All Stones/Fragments Were Removed with a Basket: No Complications: No Preoperative Antibiotics Given: Yes Stent Placed: Yes If Stent Placed, Was String Left Attached: No If Stent Placed, When is it to be Removed: 2 weeks Discharge Medications: Toradol, tamsulosin, tolterodine
[2024-07-17] MEDS: KETOROLAC 15 MG/ML 1 ML VIAL IVP STA (13:45)
[2024-07-17 13:52] VITALS: PULSE 71
[2024-07-17 13:53] VITALS: BP 149/67
== END 2024-07-17 18:27 | disposition home or self-care (01) ==
LOC: OR 07:24
PROVIDERS: ATTEND Urology
DX: N20.2 Calculus of kidney with calculus of ureter (principal); E03.9 Hypothyroidism, unspecified; Z90.710 Acquired absence of both cervix and uterus; Z90.49 Acquired absence of other specified parts of digestive tract; Z88.1 Allergy status to other antibiotic agents; Z88.2 Allergy status to sulfonamides; Z88.5 Allergy status to narcotic agent; Z79.82 Long term (current) use of aspirin; Z79.890 Hormone replacement therapy; Z79.899 Other long term (current) drug therapy
CPT/HCPCS: 74018; 52356; C2625; C1769; J2250; J0330; J1100; J2710; J2405; J2003; J3010; J1885; J2704; J2371; J1596

== ENCOUNTER → 2024-08-21 | Day surgery (SDC) | payer MEDICARE ==
--- NOTE | 2024-08-19 22:01 | P.GSHP ---
History of Present Illness H&P Date: 08/19/24 Chief Complaint: Back and abdominal pain The patient is a 79-year-old white female with a history of kidney stones. Her stones are of calcium oxalate composition and related to hypocitraturia. Potassium citrate has been prescribed but she has tolerated it poorly. Since earlier this year, she has experienced left sided abdominal and back pain. CT scan showed a 14 mm left UPJ calculus and a 16 mm left lower pole renal calculus, with no evidence of hydronephrosis. She underwent left ureteroscopy with laser lithotripsy to fragment the calculi. She now comes for cystoscopy, left ureteral stent removal, and removal of any residual left renal calculus fragments. - Constitutional Constitutional: Denies chills, Denies fever - Gastrointestinal Gastrointestinal: Denies nausea, Denies vomiting - Genitourinary (Female) Genitourinary: Reports flank pain, Reports hematuria, Reports kidney stones Past Medical History Past Medical History: Thyroid Disorder Additional Past Medical History / Comment(s): Kidney stones, hypothyroidism, hypoglycemia, seasonal allergies. History of Any Multi-Drug Resistant Organisms: None Reported Past Surgical History: Appendectomy, Hysterectomy, Orthopedic Surgery Additional Past Surgical History / Comment(s): Lasik surgery, bilat. CTR, Rt. thumb arthroplasty, Lt. breast bx. oopherectomy Past Anesthesia/Blood Transfusion Reactions: Motion Sickness Additional Past Anesthesia/Blood Transfusion Reaction / Comment(s): Gets dizzy with anesthesia. Smoking Status: Never smoker - Past Family History Mother Family Medical History: No Reported History Additional Family Medical History / Comment(s): alzheimer Sister(s) Additional Family Medical History / Comment(s): alzheimer Medications and Allergies Home Medications Medication Instructions Recorded Confirmed Type Ergocalciferol [Vitamin D2 (1250 1,250 mcg PO Q14D 04/10/22 08/18/24 History Mcg = 54735 Iu)] Fexofenadine HCl [Manjula Allergy] 60 mg PO DAILY PRN 04/10/22 08/18/24 History Levothyroxine Sodium [Levoxyl] 88 mcg PO DAILY 04/10/22 08/18/24 History Ascorbic Acid [Vitamin C] 2,000 mg PO DAILY 05/01/22 08/18/24 History Aspirin EC [Ecotrin Low Dose] 81 mg PO DAILY 05/01/22 08/18/24 History Calcifood 1 tab PO BID 05/01/22 08/18/24 History Co Q-10 100mg 100 mg PO DAILY 05/01/22 08/18/24 History Cranberry Fruit Extract [Cranberry] 400 mg PO DAILY 05/01/22 08/18/24 History Flax Seed 1300mg 1 cap PO DAILY 05/01/22 08/18/24 History Pro-Symbiotic 1 cap PO DAILY 05/01/22 08/18/24 History Quercetin 800mg 1 tab PO BID 05/01/22 08/18/24 History Turmeric Root Extract [Turmeric] 750 mg PO BID 05/01/22 08/18/24 History Zinc Gluconate [Zinc] 50 mg PO DAILY 05/01/22 08/18/24 History Theralith Xr 2 tab PO BID 07/15/24 08/18/24 History Ketorolac [Toradol] 10 mg PO Q6HR PRN #10 tab 07/17/24 08/18/24 Rx Tolterodine ER [Detrol LA] 4 mg PO DAILY #30 cap 07/17/24 08/18/24 Rx Triamcinolone 0.1% Cream [Kenalog] 1 applic TOPICAL DIRECTED PRN 08/18/24 08/18/24 History Allergies Allergy/AdvReac Type Severity Reaction Status Date / Time alendronate sodium Allergy muscle Verified 08/18/24 10:17 [From Fosamax] aches , jaw pain, migraines cephalexin [From Keflex] Allergy Rash/Hives Verified 08/18/24 10:17 levothyroxine sodium Allergy Immediate Verified 08/18/24 10:17 [From Synthroid] migraine headaches Sulfa (Sulfonamide Allergy Rash/Hives, Verified 08/18/24 10:17 Antibiotics) Swelling, Lumps ciprofloxacin AdvReac joint pain Verified 08/18/24 10:17 knuckles codeine AdvReac Loss of Verified 08/18/24 10:17 eyesight cortisone AdvReac migraines,"altered Verified 08/18/24 10:17 metabolism" risedronate sodium AdvReac Muscle, Verified 08/18/24 10:17 [From Actonel] jaw and tooth pain tamsulosin AdvReac syncope Verified 08/18/24 10:17 estrogen patch AdvReac "Sugar Uncoded 08/18/24 10:17 level problems" Surgical - Exam - General well developed, well nourished, no distress - Respiratory normal respiratory effort - Abdomen Abdomen: soft, non tender, no guarding, no rigid, no rebound - Genitourinary normal external genitalia - Psychiatric oriented to time, oriented to person, oriented to place, speech is normal, memory intact Assessment and Plan (1) Calculus of kidney Status: Acute Code(s): N20.0 - CALCULUS OF KIDNEY SNOMED Code(s): 97338380 Plan: Cystoscopy, left ureteral stent removal, left ureteroscopy with removal of residual left renal calculi, via laser lithotripsy and/or stone basketing. The procedure has been reviewed in detail with the patient. She is aware of potential risks, which include anesthesia, bleeding, infection, and ureteral injury.
[~2024-08-21] MED LIST changes: +HYDROmorphone 0.5 MG/0.5 ML SYRINGE IVP PRN; +LIDOCAINE 1% INJ 10MG/ML (20 ML MDV) ONE; +MIDAZOLAM 2 MG/2 ML VIAL IV PRN; +MIDAZOLAM 2 MG/2 ML VIAL ONE; +PHENYLEPHRINE 10 MG/ML VIAL ONE; +PROPOFOL 10 MG/ML 20 ML VIAL IV ONE; +SUCCINYLCHOLINE CHLORIDE 200 MG/10 ML VIAL IV ONE; -droPERidol 2.5 MG/ML VIAL IVP ONE; +fentaNYL (PF) 50 MCG/ML 2 ML AMP IVP PRN; +fentaNYL (PF) 50 MCG/ML 2 ML AMP ONE
--- NOTE | 2024-08-21 10:23 | XR ---
EXAMINATION TYPE: XR KUB DATE OF EXAM: 08/21/2024 COMPARISON: KUB radiograph 07/17/2024, CT abdomen and pelvis 06/10/2024 HISTORY: Pain TECHNIQUE: Single supine KUB image of the abdomen is obtained FINDINGS: Small bowel demonstrates no evidence for dilatation or air fluid levels. Gas and fecal material is seen in non-distended colon. No convincing evidence for pneumoperitoneum. Left ureteral stent identified. No definitive right ureteral calculi. Previously seen left ureteral c alculi are now visualized in today's exam. Stable pelvic phleboliths. The lung bases are clear. The osseous structures are intact. IMPRESSION: Interval placement of left ureteral stent from prior radiograph. Previously seen left renal calculi a re not definitively visualized on today's exam. [facility], , 08/21/2024 10:20 AM
[2024-08-21] MEDS: IV FLUID CONTINUATION 1,000 ML IV ONE (11:28)
[2024-08-21 11:43] LABS: Glucose,Whole Blood 96 mg/dL (70-110)
[2024-08-21] MEDS: ONDANSETRON 4 MG/2 ML VIAL IVP ONE (11:44)
[2024-08-21] MEDS: LACTATED RINGERS 1,000 ML IV SCH (11:44)
[2024-08-21] MEDS: FAMOTIDINE 20 MG/2 ML VIAL IV STA (11:45)
[2024-08-21] MEDS: LEVOFLOXACIN 500MG-D5W PMX 500 MG in DEXTROSE/WATER 1 100ML.BAG IVPB PRN (12:53)
[2024-08-21 14:22] VITALS: TEMP 97
--- NOTE | 2024-08-21 14:23 | P.OP ---
Date of Procedure: 08/21/24 Preoperative Diagnosis: Left renal calculi Postoperative Diagnosis: Same Procedure(s) Performed: Cystoscopy, left ureteral stent removal, left ureteroscopy with stone basketing Anesthesia: MAHENDRA Surgeon: Ayan Ramirez Estimated Blood Loss (ml): 5 IV fluids (ml): 500 Pathology: none sent Condition: stable Disposition: PACU Indications for Procedure: The patient is a 79-year-old white female with a history of kidney stones. Her stones are of calcium oxalate composition and related to hypocitraturia. Potassium citrate has been prescribed but she has tolerated it poorly. Since earlier this year, she has experienced left sided abdominal and back pain. CT scan showed a 14 mm left UPJ calculus and a 16 mm left lower pole renal calculus, with no evidence of hydronephrosis. She underwent left ureteroscopy with laser lithotripsy to fragment the calculi. She now comes for cystoscopy, left ureteral stent removal, and removal of any residual left renal calculus fragments. Operative Findings: Several residual calculi measuring up to 3 mm in diameter, successfully removed via stone basketing. Description of Procedure: The patient was taken to the operating room and placed in the dorsolithotomy p osition, with legs supported in Ranulfo stirrups. The external genitalia was prepped and draped sterilely. The 30 lens was used to introduce the 21-Barbadian Cha cystoscopic sheath through the urethra and into the bladder under direct vision. The bladder was examined in its entirety. No abnormalities were seen. Grasping forceps were used to grasp the distal end of the left ureteral stent, which was removed along with the cystoscope. A 0.038 inch Glidewire was passed through the stent, but could not pass as the stent was occluded. Therefore, the cystoscope was replaced into the bladder, and the Glidewire was passed through the cystoscope. The left ureteral orifice was cannulated, and the Glidewire was advanced alongside the stent and up to the renal pelvis. The stent was removed, as well as the cystoscope. An 11/13-Barbadian ureteral access catheter was passed over the wire, up to the proximal ureter. The Doctolib flexible ureteroscope was then passed through the ureteral access catheter sheath and advanced under direct vision, up to the left renal pelvis. No ureteral calculi were seen. Each calyx was examined. No calculi were seen within the upper pole or midpole calyces. However, multiple small fragments were identified within 2 lower pole calyces. Within the more dependent of the 2, several small calculi measuring 2 to 3 mm in diameter were removed using a 1.9 Barbadian 0 tip nitinol basket. As many of the small fragments were removed from these 2 calyces using the stone basket, but there were some submillimeter fragments which could not be grasped with the basket. Once it was evident that these were the only residual calculus fragments, and that they could not be removed, the ureteroscope was slowly withdrawn under direct vision. Pullout ureteroscopy showed no evidence of ureteral trauma. The patient tolerated the procedure well and was taken to the recovery room in stable condition. [facility] [place]: Procedure Acuity: Elective Stone Size and Location: 3 mm, left lower pole Ureteral Dilation: No Ureteral Access Sheath Used: Yes Stone Sent for Analysis: No All Stones/Fragments Were Removed with a Basket: No Complications: No Preoperative Antibiotics Given: Yes Stent Placed: No Discharge Medications: None
[2024-08-21 14:37] VITALS: RESP 16
--- NOTE | 2024-08-21 14:39 | FL ---
EXAMINATION TYPE: FL guidance operating room Intraoperative/procedural fluoroscopic services were pro vided. CLINICAL INDICATION:Female, 79 years old with history of LEFT RENAL CALCULI; , [facility] FINDINGS: Fluoroscopic images for left renal calculi removal. No radiographic evidence for complication. Total fluoroscopy time is 6.3 seconds. DAP: 0.3185 Gycm2 Please see the operative/procedural note for further details. [facility], , 08/21/2024 2:36 PM
[2024-08-21 14:41] LABS: Glucose,Whole Blood 86 mg/dL (70-110)
[2024-08-21 15:21] LABS: Glucose,Whole Blood 87 mg/dL (70-110)
[2024-08-21] MEDS: ACETAMINOPHEN TAB 500 MG TAB PO STA (15:22)
[2024-08-21 15:29] VITALS: BP 141/81; PULSE 78
== END | disposition home or self-care (01) ==
LOC: OR 09:47
PROVIDERS: ATTEND Urology
DX: N20.0 Calculus of kidney (principal); E03.9 Hypothyroidism, unspecified; Z79.890 Hormone replacement therapy; Z88.1 Allergy status to other antibiotic agents; Z88.2 Allergy status to sulfonamides; Z88.5 Allergy status to narcotic agent; Z90.49 Acquired absence of other specified parts of digestive tract; Z90.710 Acquired absence of both cervix and uterus; Z79.82 Long term (current) use of aspirin; Z79.899 Other long term (current) drug therapy; Z88.8 Allergy status to other drugs, medicaments and biological substances
CPT/HCPCS: 74018; 52332; C1769; J2250; J0330; J2405; J1956; J2003; J3010; J2704; J2371; J1308

== ENCOUNTER 2024-09-20 17:23 | Inpatient (IN) | payer MEDICARE ==
[2024-09-20] MEDS: ACETAMINOPHEN TAB 500 MG TAB PO STA (18:35)
--- NOTE | 2024-09-20 19:22 | XR ---
EXAMINATION TYPE: XR ankle limited RT DATE OF EXAM: 09/20/2024 6:52 PM COMPARISON: None CLINICAL INDICATION: Female, 79 years old with history of fall, pain; PHH, pain TECHNIQUE: XR ankle limited RT; frontal, lateral and oblique projections. FINDINGS: There is no evidence of acute osseous pathology. No evidence of subluxation or dislocation. Kager's fat pad is intact. No radiopaque foreign bodies are identified. Calcaneal plantar spurring is present . Multifocal degeneration changes throughout the joints of the foot with osteophyte formation and reginaldo nt space narrowing. IMPRESSION: No evidence of acute fracture. [facility], , 09/20/2024 7:19 PM
--- NOTE | 2024-09-20 19:23 | XR ---
EXAMINATION TYPE: XR knee complete LT DATE OF EXAM: 09/20/2024 6:52 PM COMPARISON: None CLINICAL INDICATION: Female, 79 years old with history of fall, pain, pain TECHNIQUE: XR knee complete LT 3 views submitted. FINDINGS: No evidence of any acute osseous pathology or soft tissue swelling. Tricompartmental oste ophyte formation involving the femoral condyles, tibial plateau and patella. Mild joint space narrowi ng. A fabella is present. IMPRESSION: 1. No acute osseous pathology. 2. Mild tricompartmental osteoarthritic changes. [facility], , 09/20/2024 7:20 PM
--- NOTE | 2024-09-20 19:49 | XR ---
EXAMINATION TYPE: XR pelvis AP view, XR femur LT DATE OF EXAM: 09/20/2024 7:08 PM COMPARISON: None CLINICAL INDICATION: Female, 79 years old with history of fall, pain; pain TECHNIQUE: XR pelvis AP view, XR femur LT, examined in a single projection. Frontal and lateral views of the left femur FINDINGS: There is thought to be possible deformity to the left femoral neck.. There is no soft tissu e abnormality. Pelvic phleboliths are present. Multilevel degenerative changes of the lower spine. The right hip appears intact.. Osteophyte formation of the superior acetabulum bilaterally with mild joint space narrowing. IMPRESSION: There is thought to be a deformity to the left femoral neck. Evaluation slightly limited. Dedicated l eft hip radiographs recommended and possibly CT to rule out valgus impacted left femoral neck fractur e. [facility], , 09/20/2024 7:47 PM
--- NOTE | 2024-09-20 19:56 | XR ---
EXAMINATION TYPE: XR chest 1V DATE OF EXAM: 09/20/2024 7:08 PM COMPARISON: None CLINICAL INDICATION: Female, 79 years old with history of FALL, PAIN; TECHNIQUE: XR chest 1V Frontal view of the chest. FINDINGS: Lungs/Pleura: There is no evidence of pleural effusion, focal consolidation, or pneumothorax. Pulmonary vascularity: Unremarkable. Heart/mediastinum: Cardiomediastinal silhouette is unremarkable. Musculoskeletal: No acute osseous pathology. IMPRESSION: No acute cardiopulmonary disease/process. [facility], , 09/20/2024 7:53 PM
--- NOTE | 2024-09-20 20:43 | ED ---
General Adult HPI - General Chief complaint: Fall Stated complaint: Fall/L Side injury-pain Time Seen by Provider: 09/20/24 18:00 Source: patient, family, RN notes reviewed, old records reviewed Mode of arrival: wheelchair - History of Present Illness Initial comments: Patient is a 79-year-old female who presents emergency department after a fall at home. She got her foot caught tangled up in the iron cord and fell onto her left hip. She may have bumped her left shoulder but she has chronic pain in the shoulder that is unchanged from baseline. She did not hit her head. Did not lose consciousness. Is not on blood thinners. Primary complaining of left hip pain. Was minimally ambulatory and cannot bear weight on that left leg. Denies any back pain, abdominal pain, chest pain. Patient endorses lateral right ankle pain in addition to left hip and left knee pain.Presents for further evaluation at this time. - Related Data Home Medications Medication Instructions Recorded Confirmed Ergocalciferol [Vitamin D2 (1250 1,250 mcg PO Q14D 04/10/22 08/21/24 Mcg = 02898 Iu)] Fexofenadine HCl [Manjula Allergy] 60 mg PO DAILY PRN 04/10/22 08/21/24 Levothyroxine Sodium [Levoxyl] 88 mcg PO DAILY 04/10/22 08/21/24 Ascorbic Acid [Vitamin C] 2,000 mg PO DAILY 05/01/22 08/21/24 Aspirin EC [Ecotrin Low Dose] 81 mg PO DAILY 05/01/22 08/21/24 Calcifood 1 tab PO BID 05/01/22 08/21/24 Co Q-10 100mg 100 mg PO DAILY 05/01/22 08/21/24 Cranberry Fruit Extract [Cranberry] 400 mg PO DAILY 05/01/22 08/21/24 Flax Seed 1300mg 1 cap PO DAILY 05/01/22 08/21/24 Pro-Symbiotic 1 cap PO DAILY 05/01/22 08/21/24 Quercetin 800mg 1 tab PO BID 05/01/22 08/21/24 Turmeric Root Extract [Turmeric] 750 mg PO BID 05/01/22 08/21/24 Zinc Gluconate [Zinc] 50 mg PO DAILY 05/01/22 08/21/24 Theralith Xr 2 tab PO BID 07/15/24 08/21/24 Triamcinolone 0.1% Cream [Kenalog] 1 applic TOPICAL DIRECTED PRN 08/18/24 08/21/24 Previous Rx's Medication Instructions Recorded Ketorolac [Toradol] 10 mg PO Q6HR PRN #10 tab 07/17/24 Tolterodine ER [Detrol LA] 4 mg PO DAILY #30 cap 07/17/24 Allergies Allergy/AdvReac Type Severity Reaction Status Date / Time alendronate sodium Allergy muscle Verified 09/20/24 17:40 [From Fosamax] aches , jaw pain, migraines cephalexin [From Keflex] Allergy Rash/Hives Verified 09/20/24 17:40 levothyroxine sodium Allergy Immediate Verified 09/20/24 17:40 [From Synthroid] migraine headaches Sulfa (Sulfonamide Allergy Rash/Hives, Verified 09/20/24 17:40 Antibiotics) Swelling, Lumps ciprofloxacin AdvReac joint pain Verified 09/20/24 17:40 knuckles codeine AdvReac Loss of Verified 09/20/24 17:40 eyesight cortisone AdvReac migraines,"altered Verified 09/20/24 17:40 metabolism" risedronate sodium AdvReac Muscle, Verified 09/20/24 17:40 [From Actonel] jaw and tooth pain tamsulosin AdvReac syncope Verified 09/20/24 17:40 estrogen patch AdvReac "Sugar Uncoded 09/20/24 17:40 level problems" Review of Systems ROS Statement: Those systems with pertinent positive or pertinent negative responses have been documented in the HPI. Review of Systems: CONST: Denies fever EYES: Denies blurry vision ENT: Denies nasal congestion C/V: Denies Chest pain RESP: Denies shortness of breath GI: Denies abdominal pain : Denies dysuria SKIN: Denies rash. MSK: Endorses left hip pain, left knee pain, right ankle pain. NEURO: Denies headache ROS Other: All systems not noted in ROS Statement are negative. Past Medical History Past Medical History: Thyroid Disorder Additional Past Medical History / Comment(s): Kidney stones, hypothyroidism, hypoglycemia, seasonal allergies. History of Any Multi-Drug Resistant Organisms: None Reported Past Surgical History: Appendectomy, Hysterectomy, Orthopedic Surgery Additional Past Surgical History / Comment(s): Lasik surgery, bilat. CTR, Rt. thumb arthroplasty, Lt. breast bx. oopherectomy. kidney stone sx in August 22 Past Anesthesia/Blood Transfusion Reactions: Motion Sickness Additional Past Anesthesia/Blood Transfusion Reaction / Comment(s): Gets dizzy with anesthesia. Past Psychological History: No Psychological Hx Reported Smoking Status: Never smoker Past Alcohol Use History: None Reported Past Drug Use History: None Reported - Past Family History Mother Family Medical History: No Reported History Additional Family Medical History / Comment(s): alzheimer Sister(s) Additional Family Medical History / Comment(s): alzheimer General Exam - General Exam Comments Initial Comments: General: Appears in no acute distress. HEAD: Normal with no signs of head trauma. EYES: PERRLA, EOMI, conjunctiva normal, no discharge. Pupils are 3 mm and equal bilaterally. ENT: Hearing grossly intact, normal oropharynx. RESPIRATORY: Clear breath sounds bilaterally. No wheezes, rales, or rhonchi. C/V: Regular rate and rhythm. S1 and S2 auscultated, no edema, peripheral pulses 2+ and intact throughout ABD: Abd is soft, nontender, nondistended EXT: Decreased range of motion of the left hip secondary to pain in the proximal left femur. No obvious deformity appreciated. No significant shortening on that side. Neurovascular intact throughout. Pelvis is stable. No midline cervical, thoracic, lumbar spine tenderness to palpation. Patient does have right ankle lateral malleolar pain. Patient does have some mild lateral left knee pain as well. No obvious deformity of the left knee. SKIN: No rashes or lesions observed on exposed skin. NEURO: Alert and oriented x 4. GCS of 15. Course Vital Signs 09/20/24 17:34 Temperature 98.3 F Pulse Rate 84 Respiratory 18 Rate Blood Pressure 134/70 O2 Sat by Pulse 99 Oximetry Medical Decision Making - Medical Decision Making Was pt. sent in by a medical professional or institution (, PA, [employer], urgent care, hospital, or halfway...) When possible be specific @ -No Did you speak to anyone other than the patient for history (EMS, parent, family, police, friend...)? What history was obtained from this source @ -No Did you review nursing and triage notes (agree or disagree)? Why? @ -I reviewed and agree with nursing and triage notes Were old charts reviewed (outside hosp., previous admission, EMS record, old EKG, old radiological studies, urgent care reports/EKG's, halfway records)? Report findings @ -No old charts were reviewed Differential Diagnosis (chest pain, altered mental status, abdominal pain women, abdominal pain men, vaginal bleeding, weakness, fever, dyspnea, syncope, h eadache, dizziness, GI bleed, back pain, seizure, CVA, palpatations, mental health, musculoskeletal)? @ -Differential Musculoskeletal Muscular strain, contusion, ligament sprain, fracture, arthritis, septic arthritis, bursitis, cellulitis, muscle spasm, nerve compression, DVT, arterial occlusion, herpes zoster, electrolyte abnormality, tumor.... This is not meant to be in all inclusive list EKG interpreted by me (3pts min.). @ -None done X-rays interpreted by me (1pt min.). @ -Chest x-ray, right ankle x-ray, left knee x-ray negative for any obvious acute traumatic injury. Patient's pelvis and femur x-ray on the left concerning for possible deformity to the left femoral neck. Radiology recommends obtaining CT imaging. CT interpreted by me (1pt min.). @ -CT imaging shows what appears to be a left femoral neck fracture. U/S interpreted by me (1pt. min.). @ -None done What testing was considered but not performed or refused? (CT, X-rays, U/S, labs)? Why? @ -None What meds were considered but not given or refused? Why? @ -None Did you discuss the management of the patient with other professionals (professionals i.e. , PA, [employer], lab, RT, psych nurse, aids social worker, die maker bench stamping, teacher, biological technical officer, director case management)? Give summary @ -Discussed with admitting provider, Dr. Gaspar who accepted the admission. [facility] Dr. Reyes notified of the consult. Was smoking cessation discussed for >3mins.? @ -No Was critical care preformed (if so, how long)? @ -No Were there social determinants of health that impacted care today? How? (Homelessness, low income, unemployed, alcoholism, drug addiction, transportation, low edu. Level, literacy, decrease access to med. care, long-term, rehab)? @ -No Was there de-escalation of care discussed even if they declined (Discuss DNR or withdrawal of care, Hospice)? DNR status @ -No What co-morbidities impacted this encounter? (DM, HTN, Smoking, COPD, CAD, Cancer, CVA, ARF, Chemo, Hep., AIDS, mental health diagnosis, sleep apnea, morbid obesity)? @ -None Was patient admitted / discharged? Hospital course, mention meds given and route, prescriptions, significant lab abnormalities, going to OR and other pertinent info. @ -Patient presents for mechanical fall with left hip, left knee, right ankle pain. Has chronic left shoulder pain that is currently at baseline. Is not on blood thinners. Did not lose conscious. Will start with x-rays of the left left hip region as well as right ankle. She was in agreement this plan. Vitals are within acceptable limits. She accepts Tylenol at this time. No concern for cauda equina syndrome. X-rays returned negative for any obvious acute injury of the right ankle, left knee, chest. Patient does have a possible left femoral neck fracture. Radiology recommends CT. I discussed with the patient and CT imaging will be obtained. She continues to decline analgesia medications.CT shows a left femoral neck fracture. Preop labs ordered. Patient made n.p.o. after midnight. Spoke with admitting provider, Dr. Headley who accepted the admission. Consult placed for medical management to [facility]. Patient was in agreement this plan. Undiagnosed new problem with uncertain prognosis? @ -No Drug Therapy requiring intensive monitoring for toxicity (Heparin, Nitro, Insulin, Cardizem)? @ -No Were any procedures done? @ -No Diagnosis/symptom? @ -Fall, left femoral neck fracture Acute, or Chronic, or Acute on Chronic? @ -Acute Uncomplicated (without systemic symptoms) or Complicated (systemic symptoms)? @ -Complicated Side effects of treatment? @ -None Exacerbation, Progression, or Severe Exacerbation] @ -No Poses a threat to life or bodily function? @ -Yes Disposition Clinical Impression: Fall, Fracture of femoral neck, left Disposition: ADMITTED IP TO THIS HOSP Condition: Stable Referrals: Doroteo Abraham MD [Primary Care Provider] - 1-2 days Time of Disposition: 21:14
[2024-09-20] MEDS ORDERED: ONDANSETRON 4 MG/2 ML VIAL IVP PRN (21:16)
[2024-09-20] MEDS ORDERED: NALOXONE 0.4 MG/ML 1 ML VIAL IV PRN (21:16)
--- NOTE | 2024-09-20 21:24 | CT ---
EXAMINATION TYPE: CT hip LT wo con DATE OF EXAM: 09/20/2024 9:00 PM COMPARISON: . Extremity radiograph same day. CLINICAL INDICATION: Female, 79 years old with history of evaluate for fracture; PHH, Evaluate for fr acture TECHNIQUE: Axial images were obtained of the CT hip LT wo con, Additional coronal and sagittal reform atted images and soft tissue and bone window were obtained for review. 3-D reconstruction was created on a separate workstation. Contrast used: mL of , (None if empty) Oral contrast used: (None if empty) CT DLP: 384.7 mGycm, Automated exposure control for dose reduction was used. FINDINGS: There is a valgus impacted left femoral neck fracture present. No additional fractures visu alized. Scattered colonic diverticula. The soft tissues and muscular volume or within normal limits. Mild degeneration changes of the hip with joint space tearing osteophyte formation. IMPRESSION: Confirmation of valgus impacted left femoral neck fracture. [facility], , 09/20/2024 9:21 PM
[2024-09-20] MEDS: SODIUM CHLORIDE 0.9% 1,000 ML IV STA (21:39)
[2024-09-20] MEDS: KETOROLAC 15 MG/ML 1 ML VIAL IVP PRN (22:16)
[2024-09-20 22:17] LABS: Basophils # (A) 0.01 10*3/uL (0.00-0.10); Basophils % (A) 0.1 %; Eosinophils # (A) 0.02 10*3/uL (0.04-0.35); Eosinophils % (A) 0.2 %; HCT 33.7 % (37.2-46.3); HGB 11.7 g/dL (12.0-15.0); Lymphocytes # (A) 1.54 10*3/uL (0.90-5.00); Lymphocytes % (A) 15.9 %; MCHC 34.7 g/dL (32.0-37.0); MCV 94.9 fL (80.0-97.0); Mean Platelet Volume 9.8 fL (9.5-12.2); Monocytes # (A) 0.67 10*3/uL (0.20-1.00); Monocytes % (A) 6.9 %; Neutrophils # (A) 7.42 10*3/uL (1.80-7.70); Neutrophils % (A) 76.7 %; Platelet Count 223 10*3/uL (140-440); RBC 3.55 10*6/uL (4.10-5.20); RDW 11.8 % (11.5-14.5); WBC 9.68 10*3/uL (4.50-10.00)
[2024-09-20 22:27] LABS: African American GFR (CKD) >90 (>60 ml/min/1.73 sqM); Anion Gap 8 mmol/L; Blood Urea Nitrogen 17 mg/dL (7-17); Calcium 9.8 mg/dL (8.4-10.2); Carbon Dioxide 26 mmol/L (22-30); Chloride 96 mmol/L (98-107); Glucose 89 mg/dL (74-99); Non-African American GFR(CKD) 86 (>60 ml/min/1.73 sqM); Potassium 3.9 mmol/L (3.5-5.1); Sodium 130 mmol/L (137-145)
[2024-09-20 22:40] LABS: Partial Thromboplastin Time 24.1 sec (22.0-30.0); Prothrombin Time 10.6 sec (10.0-12.5)
--- NOTE | 2024-09-20 22:56 | P.HPOR ---
History of Present Illness H&P Date: 09/20/24 Chief Complaint: Left hip pain Patient presented to the emergency room after a fall from standing onto her left side, she noted immediate pain to the left hip and inability to bear weight. Pain is well localized to the left hip without radiation, pain is worsened with any motion or direct contact to the left hip. She denies any numbness or tingling to the left leg. She notes some mild pain to her right ankle as well as her left knee after the fall but denies any further injuries. At baseline patient is a community ambulator but does not engage in any strenuous acti vities, she does not require any assistive devices for ambulation at baseline. She has history notable for hypoglycemia as well as hypothyroidism as well as recent kidney stones however she denies any cardiac or pulmonary conditions and takes a daily baby aspirin at baseline. Review of Systems Constitutional: Denies chills, Denies fever Cardiovascular: Denies chest pain Respiratory: Denies cough Musculoskeletal: Reports as per HPI Neurological: Denies numbness Psychiatric: Denies confusion Past Medical History Past Medical History: Thyroid Disorder Additional Past Medical History / Comment(s): Kidney stones, hypothyroidism, hypoglycemia, seasonal allergies. History of Any Multi-Drug Resistant Organisms: None Reported Past Surgical History: Appendectomy, Hysterectomy, Orthopedic Surgery Additional Past Surgical History / Comment(s): Lasik surgery, bilat. CTR, Rt. thumb arthroplasty, Lt. breast bx. oopherectomy. kidney stone sx in August 22 Past Anesthesia/Blood Transfusion Reactions: Motion Sickness Additional Past Anesthesia/Blood Transfusion Reaction / Comment(s): Gets dizzy with anesthesia. Past Psychological History: No Psychological Hx Reported Smoking Status: Never smoker Past Alcohol Use History: None Reported Past Drug Use History: None Reported - Past Family History Mother Family Medical History: No Reported History Additional Family Medical History / Comment(s): alzheimer Sister(s) Additional Family Medical History / Comment(s): alzheimer Medications and Allergies Home Medications Medication Instructions Recorded Confirmed Type Ergocalciferol [Vitamin D2 (1250 1,250 mcg PO Q14D 04/10/22 08/21/24 History Mcg = [id number] Iu)] Fexofenadine HCl [Manjula Allergy] 60 mg PO DAILY PRN 04/10/22 08/21/24 History Levothyroxine Sodium [Levoxyl] 88 mcg PO DAILY 04/10/22 08/21/24 History Ascorbic Acid [Vitamin C] 2,000 mg PO DAILY 05/01/22 08/21/24 History Aspirin EC [Ecotrin Low Dose] 81 mg PO DAILY 05/01/22 08/21/24 History Calcifood 1 tab PO BID 05/01/22 08/21/24 History Co Q-10 100mg 100 mg PO DAILY 05/01/22 08/21/24 History Cranberry Fruit Extract [Cranberry] 400 mg PO DAILY 05/01/22 08/21/24 History Flax Seed 1300mg 1 cap PO DAILY 05/01/22 08/21/24 History Pro-Symbiotic 1 cap PO DAILY 05/01/22 08/21/24 History Quercetin 800mg 1 tab PO BID 05/01/22 08/21/24 History Turmeric Root Extract [Turmeric] 750 mg PO BID 05/01/22 08/21/24 History Zinc Gluconate [Zinc] 50 mg PO DAILY 05/01/22 08/21/24 History Theralith Xr 2 tab PO BID 07/15/24 08/21/24 History Ketorolac [Toradol] 10 mg PO Q6HR PRN #10 tab 07/17/24 08/21/24 Rx Tolterodine ER [Detrol LA] 4 mg PO DAILY #30 cap 07/17/24 08/21/24 Rx Triamcinolone 0.1% Cream [Kenalog] 1 applic TOPICAL DIRECTED PRN 08/18/24 08/21/24 History Allergies Allergy/AdvReac Type Severity Reaction Status Date / Time alendronate sodium Allergy muscle Verified 09/20/24 17:40 [From Fosamax] aches , jaw pain, migraines cephalexin [From Keflex] Allergy Rash/Hives Verified 09/20/24 17:40 levothyroxine sodium Allergy Immediate Verified 09/20/24 17:40 [From Synthroid] migraine headaches Sulfa (Sulfonamide Allergy Rash/Hives, Verified 09/20/24 17:40 Antibiotics) Swelling, Lumps ciprofloxacin AdvReac joint pain Verified 09/20/24 17:40 knuckles codeine AdvReac Loss of Verified 09/20/24 17:40 eyesight cortisone AdvReac migraines,"altered Verified 09/20/24 17:40 metabolism" risedronate sodium AdvReac Muscle, Verified 09/20/24 17:40 [From Actonel] jaw and tooth pain tamsulosin AdvReac syncope Verified 09/20/24 17:40 estrogen patch AdvReac "Sugar Uncoded 09/20/24 17:40 level problems" Physical Examination General: Patient is alert and oriented, in no acute distress Cardiovascular: Patient has normal heart rate, intact distal pulses Pulmonary: Patient is in no respiratory distress, no audible wheezing Musculoskeletal: Left hip/left lower extremity Skin is intact, tender tender to palpation around the left hip globally Overall the left leg is slightly shortened compared to the right but no si gnificant rotational malalignment Pain with any attempted motion of the left hip No tender to palpation about the left knee Patient is able to plantar and dorsiflex the left ankle as well as flex and extend the digits of the foot There is intact light touch sensation throughout the left lower extremity There is palpable DP pulses and brisk capillary refill throughout the left foot Patient's right ankle Skin is intact there is no swelling or ecchymosis Nontender palpation throughout the right ankle Patient has full ankle motion in all planes She is neurovascularly intact throughout the right lower extremity Tertiary exam reveals no further areas of trauma, tenderness or instability Results - Labs Result Diagrams: 09/20/24 21:37 09/20/24 21:37 - Diagnostic results Hip x-ray: image reviewed (Imaging shows a subcapital femoral neck fracture with valgus impaction but questionable completion of the fracture as well as questionable displacement) Hip CT: image reviewed (Imaging confirms a complete subcapital femoral neck fracture with valgus impaction but without significant displacement there is also no significant degenerative changes to the hip joint) Ankle/Foot x-ray: image reviewed (no acute fracture or dislocation, no apparent soft tissue abnormalities ) Assessment and Plan Assessment: Left subcapital femoral neck fracture Plan: Detailed discussion was had with the patient and family regarding the nature of the injury. With a fracture as a result of minor trauma this is an indication of poor bone quality and they are encouraged to discuss further metabolic testing and workup with their primary care physician in coordination with our team and possibly even an enocrinologist. They sustained an unstable hip fracture. Based on their baseline ambulatory status this is an injury that would greatly benefit from surgical intervention in order to provide patient with the best chance of regaining mobility after this injury. We discussed non operative treatment is theoretically possible but would require prolonged non weight bearing to the affected leg which would ultimately result in prolonged immobilization and is associated with significantly increased mortality rates. We discussed that the most appropriate surgical option for this injury would be [an arthroplasty type of procedure, we did discuss that her overall fracture location and alignment would allow for the potential of fixation however there is a risk of needing further operations and overall patient would like a surgical option that provides her the best chance of avoiding the need for future surgery. Additionally we discussed the options of hemiarthroplasty versus total hip arthroplasty, patient does not have significant functional demands outside of activities of daily living and overall I think a hemiarthroplasty would provide her with a good functional hip that would allow her to complete her desired activities. The risks of surgery include scarring, risk of swelling and possible permanent swelling of the affected extremity, superficial vs deep infections, damage to surrounding structures including muscles, nerve, tendons, blood vessels, hardware failure, leg length discrepancy, intraoperative fracture, compartment syndrome, need for additional future surgery, blood clots, heart attack, . Patient understands these risks and wishes to proceed with surgery. Written consent was obtained Benefits include replacing the fractured area of bone and helping with baseline pain, providing the patient with the opportunity to weight bear on the extremity immediately after surgery. We also discussed the likely post operative course after surgery including several days in the hospital after surgery and evaluation by the PT and OT staff to aid in determining the proper destination after their hospitalization, they may require a period of time at a rehab or nursing facility. We also discussed realistic expectations regarding function after this injury, the best case scenario is she returns to her baseline functional level but many times patients become more depending on support aids such as walkers/canes/or wheelchairs based on their previous level of function. NWB to LLE appreciate medical evaluation for preoperative assessment and medical management multimodal pain regimen bazan catheter placement NPO midnight plan for OR tomorrow morning
--- NOTE | 2024-09-20 23:10 | P.CONS ---
History of Present Illness - Reason for Consult Consult date: 09/20/24 Medical Management - History of Present Illness History of present illness; 75-year-old female with hypothyroidism who presents emergency department after fall at home. She states she had a foot tangled up in a cord and fell directly onto her left hip. She states that she may have bumped her left shoulder as well, however she notes that she has chronic pain and it is no worse than at baseline. She did not hit her head, did not lose consciousness and is not on blood thinners. At baseline she is ambulatory, however upon arrival to the emergency department she has minimal ambulation and cannot bear weight on the left leg. Additionally, notes some lateral right ankle pain patient is sitting up in bed resting with no complaints of pain. Patient reports absence of fever, chills, weight loss, chest pain, palpitations, diaphoresis, dyspnea, cough, nausea, vomiting, constipation, diarrhea, abdominal pain, weakness, myalgia, dizziness, headache, and dysuria. Internal medicine was consulted for medical management. Social history: - Smoking: Denies - Alcohol: Denies - Recreational drug use: Denies Initial lab with CBC, BMP, PT, INR and PTT all ordered, currently pending at this time X-ray of the right ankle showed no evidence of acute fracture X-ray of the left knee showed no acute osseous pathology, mild tricompartmental osteoarthritic changes X-ray of the left femur/pelvis showed a possible deformity in the left femoral neck, recommended follow-up CT X-ray of the chest showed no acute cardiopulmonary disease/process CT scan of the left hip showed confirmation of valgus impacted left femoral neck fracture REVIEW OF SYSTEMS: All systems reviewed, pertinent positives and negatives noted in HPI. All other symptoms are negative. PHYSICAL EXAMINATION: Vitals reviewed GENERAL: No acute distress. Well developed, well nourished. HEENT: Pupils are round and equally reacting to light. EOMI. No scleral icterus. Normocephalic, atraumatic. No pharyngeal erythema. No thyromegaly. CARDIOVASCULAR: S1 and S2 present. No murmurs, rubs, or gallops. PULMONARY: Chest is clear to auscultation, no wheezing, rhonchi, or crackles. ABDOMEN: Soft, nontender, nondistended, normoactive bowel sounds. No palpable organomegaly. MUSCULOSKELETAL: No apparent joint swelling and deformities. EXTREMITIES: No apparent cyanosis, clubbing, or pedal edema. NEUROLOGICAL: The patient is alert and oriented x3, Gross neurological examination did not reveal any focal deficits. 5/5 strength bilateral UE and LE with limitation over the left lower extremity due to her injury and pain . SKIN: No apparent rashes. Assessment and plan 75-year-old female with hypothyroidism who presents emergency department after fall at home. CT scan of the left hip showed a valgus impacted left femoral neck fracture. Chronic Medical Conditions #Hypothyroidism - Resume home Levoxyl 88 mcg once verified by pharmacy #Valgus impacted left femoral neck fracture -Pain management and DVT prophylaxis per primary surgical team Patient is medically optimized at this time. Will continue to follow for the duration of her stay. Thank you very much for this consult. F: NS at 100 cc/h E: Replete as needed N: N.p.o. after midnight DVT ppx: per primary surgical team Code status: Full code Patient is stable from medical stand point Follow up CBC and BMP in AM Dictation was produced using [employer] dictation software. Please excuse any grammatical, word or spelling errors. Matthew Layton MD PGY-1 IM I have seen and evaluated the patient today. I Discussed the case with the resident and agree with the resident's findings I edited the assessment and plan as necessary as documented in the resident's note. patient is 79 year old Female, presetned with fall and injury to the left hip. Patient denies any recent history or symptoms of congestive heart failure, mycardial infarction, syncope, arrhythmia, palpitation, or exertional dyspnea. Patient denies any past medical history of stroke, CAD, CHF, CKD, or DM. Patient is functional at baseline at >4 METs she is able to do intensive home chores like vacuuming and mopping with no limitations . Patient labs reviewed, EKG ordered. Patient is scheduled for orthopedic surgery to fix left hip fracture. This is of moderate risk, however, patient has no medical risk factors from her past medical history. Patient can proceed to surgery with moderate (3.9%) but acceptable perioperative cardiovascular risk factors contingent no significant abnormalities on her EKG. This has been explained to the patient , all questions answered, patient verbalized understanding and agreement. of note patient has went under general anaesthesia twice this year in june and July for kidney stones and tolerated well with no complications Past Medical History Past Medical History: Thyroid Disorder Additional Past Medical History / Comment(s): Kidney stones, hypothyroidism, hypoglycemia, seasonal allergies. History of Any Multi-Drug Resistant Organisms: None Reported Past Surgical History: Appendectomy, Hysterectomy, Orthopedic Surgery Additional Past Surgical History / Comment(s): Lasik surgery, bilat. CTR, Rt. thumb arthroplasty, Lt. breast bx. oopherectomy. kidney stone sx in August 22 Past Anesthesia/Blood Transfusion Reactions: Motion Sickness Additional Past Anesthesia/Blood Transfusion Reaction / Comm: Gets dizzy with anesthesia. Past Psychological History: No Psychological Hx Reported Smoking Status: Never smoker Past Alcohol Use History: None Reported Past Drug Use History: None Reported - Past Family History Mother Family Medical History: No Reported History Additional Family Medical History / Comment(s): alzheimer Sister(s) Additional Family Medical History / Comment(s): alzheimer Medications and Allergies Home Medications Medication Instructions Recorded Confirmed Type Ergocalciferol [Vitamin D2 (1250 1,250 mcg PO Q14D 04/10/22 08/21/24 History Mcg = 80306 Iu)] Fexofenadine HCl [Manjula Allergy] 60 mg PO DAILY PRN 04/10/22 08/21/24 History Levothyroxine Sodium [Levoxyl] 88 mcg PO DAILY 04/10/22 08/21/24 History Ascorbic Acid [Vitamin C] 2,000 mg PO DAILY 05/01/22 08/21/24 History Aspirin EC [Ecotrin Low Dose] 81 mg PO DAILY 05/01/22 08/21/24 History Calcifood 1 tab PO BID 05/01/22 08/21/24 History Co Q-10 100mg 100 mg PO DAILY 05/01/22 08/21/24 History Cranberry Fruit Extract [Cranberry] 400 mg PO DAILY 05/01/22 08/21/24 History Flax Seed 1300mg 1 cap PO DAILY 05/01/22 08/21/24 History Pro-Symbiotic 1 cap PO DAILY 05/01/22 08/21/24 History Quercetin 800mg 1 tab PO BID 05/01/22 08/21/24 History Turmeric Root Extract [Turmeric] 750 mg PO BID 05/01/22 08/21/24 History Zinc Gluconate [Zinc] 50 mg PO DAILY 05/01/22 08/21/24 History Theralith Xr 2 tab PO BID 07/15/24 08/21/24 History Ketorolac [Toradol] 10 mg PO Q6HR PRN #10 tab 07/17/24 08/21/24 Rx Tolterodine ER [Detrol LA] 4 mg PO DAILY #30 cap 07/17/24 08/21/24 Rx Triamcinolone 0.1% Cream [Kenalog] 1 applic TOPICAL DIRECTED PRN 08/18/24 08/21/24 History Allergies Allergy/AdvReac Type Severity Reaction Status Date / Time alendronate sodium Allergy muscle Verified 09/20/24 17:40 [From Fosamax] aches , jaw pain, migraines cephalexin [From Keflex] Allergy Rash/Hives Verified 09/20/24 17:40 levothyroxine sodium Allergy Immediate Verified 09/20/24 17:40 [From Synthroid] migraine headaches Sulfa (Sulfonamide Allergy Rash/Hives, Verified 09/20/24 17:40 Antibiotics) Swelling, Lumps ciprofloxacin AdvReac joint pain Verified 09/20/24 17:40 knuckles codeine AdvReac Loss of Verified 09/20/24 17:40 eyesight cortisone AdvReac migraines,"altered Verified 09/20/24 17:40 metabolism" risedronate sodium AdvReac Muscle, Verified 09/20/24 17:40 [From Actonel] jaw and tooth pain tamsulosin AdvReac syncope Verified 09/20/24 17:40 estrogen patch AdvReac "Sugar Uncoded 09/20/24 17:40 level problems" Physical Exam Vitals: Vital Signs Temp Pulse Resp BP Pulse Ox 09/20/24 22:08 97.7 F 74 18 137/74 99 09/20/24 17:34 98.3 F 84 18 134/70 99 Intake and Output 09/20/24 09/20/24 09/20/24 06:59 14:59 22:59 Other: Weight 50.802 kg Results CBC & Chem 7: 09/20/24 21:37 09/20/24 21:37
[2024-09-21 07:57] LABS: Basophils # (A) 0.01 10*3/uL (0.00-0.10); Basophils % (A) 0.2 %; Eosinophils # (A) 0.01 10*3/uL (0.04-0.35); Eosinophils % (A) 0.2 %; HCT 32.8 % (37.2-46.3); HGB 11.1 g/dL (12.0-15.0); Lymphocytes # (A) 0.85 10*3/uL (0.90-5.00); Lymphocytes % (A) 19.6 %; MCH 32.8 pg (27.0-32.0); MCHC 33.8 g/dL (32.0-37.0); Mean Platelet Volume 9.1 fL (9.5-12.2); Monocytes # (A) 0.41 10*3/uL (0.20-1.00); Monocytes % (A) 9.4 %; Neutrophils # (A) 3.05 10*3/uL (1.80-7.70); Neutrophils % (A) 70.4 %; Platelet Count 195 10*3/uL (140-440); RBC 3.38 10*6/uL (4.10-5.20); RDW 12.1 % (11.5-14.5); WBC 4.34 10*3/uL (4.50-10.00)
[2024-09-21 08:16] LABS: African American GFR (CKD) >90 (>60 ml/min/1.73 sqM); Anion Gap 7 mmol/L; Blood Urea Nitrogen 15 mg/dL (7-17); Calcium 9.2 mg/dL (8.4-10.2); Carbon Dioxide 25 mmol/L (22-30); Chloride 101 mmol/L (98-107); Glucose 97 mg/dL (74-99); Non-African American GFR(CKD) 85 (>60 ml/min/1.73 sqM); Sodium 133 mmol/L (137-145)
--- NOTE | 2024-09-21 09:39 | P.PN ---
Subjective Progress Note Date: 09/21/24 Principal diagnosis: left femoral neck fracture No acute events overnight, patient still notes pain to the left hip though improved on her pain regimen. Denies any chest pain or shortness of breath. Wishes to proceed with surgery today as previously discussed. Objective - Vital Signs Vital signs: Vital Signs Temp 98.0 F 09/21/24 07:24 Pulse 78 09/21/24 07:24 Resp 16 09/21/24 07:24 BP 135/81 09/21/24 07:24 Pulse Ox 99 09/21/24 07:24 FiO2 Intake & Output 09/20/24 09/21/24 09/21/24 18:59 06:59 18:59 Output Total 750 Balance -750 Weight 50.802 kg 50.802 kg Output: Urine 750 Other: Voiding Method Indwelling Catheter - Exam Left hip TTP globally around the hip thigh and calf remain soft and compressible neurovascular status remains intact to the left leg without change from previous exam further tertiary exam reveals no further areas of trauama or injury today - Labs CBC & Chem 7: 09/21/24 07:45 09/21/24 07:45 Labs: Abnormal Lab Results - Last 24 Hours (Table) 09/20/24 09/20/24 09/21/24 Range/Units 21:37 21:37 07:45 WBC 4.34 L (4.50-10.00) 10*3/uL RBC 3.55 L 3.38 L (4.10-5.20) 10*6/uL Hgb 11.7 L 11.1 L (12.0-15.0) g/dL Hct 33.7 L 32.8 L (37.2-46.3) % MCH 33.0 H 32.8 H (27.0-32.0) pg MPV 9.1 L (9.5-12.2) fL Lymphocytes # 0.85 L (0.90-5.00) 10*3/uL Eosinophils # 0.02 L 0.01 L (0.04-0.35) 10*3/uL Sodium 130 L (137-145) mmol/L Chloride 96 L (98-107) mmol/L 09/21/24 Range/Units 07:45 WBC (4.50-10.00) 10*3/uL RBC (4.10-5.20) 10*6/uL Hgb (12.0-15.0) g/dL Hct (37.2-46.3) % MCH (27.0-32.0) pg MPV (9.5-12.2) fL Lymphocytes # (0.90-5.00) 10*3/uL Eosinophils # (0.04-0.35) 10*3/uL Sodium 133 L (137-145) mmol/L Chloride (98-107) mmol/L Assessment and Plan (1) Fracture of femoral neck, left Current Visit: Yes Status: Acute Code(s): S72.002A - FRACTURE OF UNSP PART OF NECK OF LEFT FEMUR, INIT SNOMED Code(s): 9981825 Plan: Plan to proceed with OR today after repeated discussion of risks and benefits for now NWB to LLE NPO plan for OR later this morning PT/OT post op multimodal pain regimen appreciate medicine input for medical managment and shania-operative assessment
[2024-09-21] MEDS: LACTATED RINGERS 1,000 ML IV SCH (09:50)
[2024-09-21] MEDS: LACTATED RINGERS 1,000 ML IV ONE ×2 (09:50→10:00)
[2024-09-21] MEDS ORDERED: LIDOCAINE 1% INJ 10MG/ML (20 ML MDV) ONE (09:51)
[2024-09-21] MEDS ORDERED: NEOSTIGMINE 1 MG/ML 10 ML VIAL ONE (09:51)
[2024-09-21] MEDS ORDERED: SUCCINYLCHOLINE CHLORIDE 200 MG/10 ML VIAL IV ONE (09:51)
[2024-09-21] MEDS ORDERED: ONDANSETRON 4 MG/2 ML VIAL ONE (09:51)
[2024-09-21] MEDS ORDERED: ROPIVACAINE 5 MG/ML 30 ML VIAL ONE (09:51)
[2024-09-21] MEDS ORDERED: GLYCOPYRROLATE 0.2 MG/ML 2 ML VIAL ONE (09:51)
[2024-09-21] MEDS ORDERED: fentaNYL (PF) 50 MCG/ML 2 ML AMP ONE (09:51)
[2024-09-21] MEDS: VANCOMYCIN 1,000 MG VIAL IVPB ONE (09:51)
[2024-09-21] MEDS ORDERED: TRANEXAMIC 1,000 MG/100ML-NACL PREMIX BAG ONE (09:51)
[2024-09-21] MEDS ORDERED: ROCURONIUM 10 MG/ML (5 ML VIAL) IV ONE (09:51)
[2024-09-21] MEDS ORDERED: DEXAMETHASONE SOD PHOSPHATE 4 MG/ML 1 ML VIAL ONE (09:51)
[2024-09-21] MEDS ORDERED: ePHEDrine 50 MG/ML 1 ML VIAL ONE (09:51)
[2024-09-21] MEDS ORDERED: MIDAZOLAM 2 MG/2 ML VIAL ONE (09:51)
[2024-09-21] MEDS ORDERED: PHENYLEPHRINE-0.9% NACL SYG 1,000 MCG/10 ML SYRINGE ONE (09:51)
[2024-09-21] MEDS ORDERED: PROPOFOL 10 MG/ML 20 ML VIAL IV ONE (09:51)
[2024-09-21] MEDS ORDERED: MAGNESIUM HYDROXIDE 2,400 MG/30 ML CUP PO PRN (10:07)
[2024-09-21] MEDS ORDERED: NALOXONE 0.4 MG/ML 1 ML VIAL IV PRN (10:07)
[2024-09-21] MEDS ORDERED: HYDROmorphone 0.5 MG/0.5 ML SYRINGE IVP PRN ×3 (10:07)
[2024-09-21] MEDS ORDERED: HYDROcodone/APAP 5-325MG 1 EACH TAB PO PRN ×2 (10:07)
[2024-09-21] MEDS ORDERED: traMADol 50 MG TAB PO PRN ×2 (10:13)
--- NOTE | 2024-09-21 10:28 | P.ANPRN ---
Procedure Note - Anesthesia - Nerve Block Performed Left iPack Single Time Out Performed: Yes Date of Procedure: 09/21/24 Procedure Start Time: 09:52 Procedure Stop Time: 09:56 Location of Patient: PreOp Indication: Acute Post-Operative Pain, Requested by Surgeon Sedation Type: Sedate with meaningful contact maintained Preparation: Sterile Prep, Sterile Dressing Position: Supine Catheter: None Needle Types: Facet Needle Gauge: 20 Ultrasound used to visualize needle placement: Yes Ultrasound used to observe medication spread: Yes Injectate: 0.5% Ropivacaine (see comment for volume) (25 ml + decadron 4 mg) Blood Aspirated: No Pain Paresthesia on Injection Noted: No Resistance on Injection: Normal Image Stored and Saved: Yes Events: Uneventful and Well Tolerated Left Other (see comment) Single Time Out Performed: Yes (Lateral femoral cutaneous nerve block) Date of Procedure: 09/21/24 Procedure Start Time: 09:57 Procedure Stop Time: 09:59 Location of Patient: PreOp Indication: Acute Post-Operative Pain, Requested by Surgeon Sedation Type: Sedate with meaningful contact maintained Preparation: Sterile Prep, Sterile Dressing Position: Supine Catheter: None Needle Types: Facet Needle Gauge: 20 Ultrasound used to visualize needle placement: Yes Ultrasound used to observe medication spread: Yes Injectate: 0.5% Ropivacaine (see comment for volume) (5 ml) Blood Aspirated: No Pain Paresthesia on Injection Noted: No Resistance on Injection: Normal Image Stored and Saved: Yes Events: Uneventful and Well Tolerated
[2024-09-21] MEDS: ROPIVACAINE/EPI/CLONIDINE/KET 50 ML SYRINGE MISCELLANE PRN (10:51)
[2024-09-21] MEDS: LEVOTHYROXINE 88 MCG TAB PO SCH (11:01)
[2024-09-21] MEDS: EPINEPHrine 2 MG in SODIUM CHLORIDE 0.9% 200 ML IV ONE (11:02)
--- NOTE | 2024-09-21 12:52 | FL ---
Fluoroscopy INDICATION: Pain hip fracture repair FINDINGS: Fluoroscopy time: 15 seconds. Total dose area product (DAP) in uGy*m?, mGy*cm? (or similar): 0.3727 Images obtained: 0. Images document the procedure. IMPRESSION: 1. Documentation of fluoroscopy. [facility], , 09/21/2024 12:50 PM
--- NOTE | 2024-09-21 12:58 | XR ---
Fluoroscopy INDICATION: Pain, hip repair FINDINGS: Fluoroscopy time: 15 seconds. Total dose area product (DAP) in uGy*m?, mGy*cm? (or similar): 0.3727 Images obtained: 7. Images document left hip prosthesis placement IMPRESSION: 1. Documentation of fluoroscopy. [facility], , 09/21/2024 12:56 PM
[2024-09-21 13:16] LABS: Glucose,Whole Blood 138 mg/dL (70-110)
[2024-09-21] MEDS ORDERED: LORATADINE 10 MG TAB PO PRN (13:29)
--- NOTE | 2024-09-21 13:31 | XR ---
EXAMINATION TYPE: XR Hip Limited LT DATE OF EXAM: 09/21/2024 1:25 PM COMPARISON: None. CLINICAL INDICATION: Female, 79 years old with history of post-op left hip xray, pain TECHNIQUE: AP view(s) obtained. FINDINGS: There is placement of a left hip prosthesis. Postsurgical soft tissue changes are present. No acute f ractures are evident. The femoral component articulates with the acetabulum. IMPRESSION: 1. No acute fracture post left hip replacement. [facility], , 09/21/2024 1:29 PM
--- NOTE | 2024-09-21 13:48 | P.PN ---
Subjective Progress Note Date: 09/21/24 Hospital course: Patient is a very pleasant 79-year-old female with a past medical history of hypothyroidism, kidney stones, and previous complications with anesthesia via dizziness during postoperative period. She presented to the emergency department on 09/16/2024 status post trip and fall. Patient reports she was doing her daily ironing when her slipper became entangled with the cord for the iron resulting in her falling directly onto her left hip. She denied hitting her head or having any loss of consciousness and denies any other injuries. Patient states she did not get part by her iron. Patient patient presents the department. Vital signs upon arrival show blood pressure 134/70, heart rate 84, respiratory rate 18, temp 98.3 F, and SpO2 of 99% on room air. X-ray pelvis revealed deformity of the left femoral neck. CT hip completed confirming x-ray findings of valgus impacted left femoral neck fracture. labs were completed and reviewed. CBC showing normocytic anemia with hemoglobin of 11.7. Coagulation profile normal findings. BMP showing hypochloremic hyponatremia with sodium of 130 and chloride of 96. Glucose 89. Calcium 9.8. Was admitted under orthopedic surgery team and after surgical clearance by overnight physician patient is scheduled to be taken down for OR this morning. Physical exam: Patient seen and fully evaluated at bedside this morning. She reports they are preparing to take her down for surgery this morning at 10 AM. She reports currently pain is controlled, but states she has not been moving her leg because she knows the pain will come back with any movement. Movement and sensation of left ankle and foot is intact. Patient denies having any headache, lightheadedness, dizziness, chest pain, palpitations, shortness of breath, cough or congestion, abdominal pain, nausea, vomiting, or any other complaints at this time. Vital signs reviewed and stable. General: Nontoxic, no distress and appears stated age. Derm: Skin warm and dry, normal coloration for ethnicity. Head: Atraumatic, normocephalic and symmetric. Eyes: EOM's intact, no lid lag, and anicteric sclera Mouth: no lip lesions, mucus membranes moist Cardiovascular: regular rate and rhythm with normal S1S2, no murmur, positive posterior tibial pulses bilaterally, and cap refill < 2 seconds. Lungs: Respirations even, regular, and unlabored on room air. Lungs CTA bila terally, no rhonchi, no rales, no wheezing, and no accessory muscle usage. Abdominal: soft, nontender to palpation, no guarding, no appreciable organomegaly Ext: No gross muscle atrophy, no edema, no contractures. Movement and sensation intact. Patient has minimally noted shortening of left lower extremity when compared to right Neuro: Speech clear, face symmetrical and CN II-XII grossly intact with no noted focal neuro deficits Psych: Alert and oriented to person, place, time, and situation. Appropriate and pleasant affect. Assessment and Plan of Care: Preoperative clearance Left femoral neck fracture Mechanical fall -EKG was ordered for preoperative clearance awaiting completion -METS score is > 4. Patient reports she lives at home with her and is independent of all activities of daily living. -Patient is scheduled for orthopedic surgery to fix left hip fracture. This is of moderate risk, however, patient has no medical risk factors from her past medical history that would absolutely contraindicate patient undergoing this urgent procedure. Patient can proceed to surgery with moderate (3.9%) but acceptable perioperative cardiovascular risk factors contingent no significant abnormalities on her EKG. -Patient to remain bedbound pending completion of surgical procedure and activity to be advanced as indicated by orthopedic surgeon. Normocytic anemia -Appears to be chronic and at baseline. Currently hemoglobin 11.1 with previous hemoglobin obtained 07/01/2024 resulting at 11.8. Hypochloremic hyponatremia -Improving with gentle IV fluid hydration. Continue with gentle IV fluid hydration with 0.9% normal saline 65 cc/h. Will continue to monitor closely wit h repeat a.m. labs and place additional orders if indicated based upon these findings. Hypothyroidism -Continue levothyroxine 88 mcg daily. Data and imaging reviewed: Morning labs reviewed. CBC showing bicytopenia with WBC count of 4.34 and hemoglobin of 11.1. BMP showing hyponatremia with sodium of 133 hypochloremia resolved with chloride of 101. Blood glucose 97. Calcium 9.2. Vital signs reviewed. Blood pressure 135/81, heart rate 78, respiratory rate 16, temp 98.0 F, and SpO2 of 99% on room air Thank you for allowing us to participate in the care of this pleasant patient. Do not hesitate to contact us with questions. Someone can be reached from the [facility] hospitalist group all hours of the day at [phone] or via perfect serve. Patient was seen independently by Nurse Pracitioner. This document was prepared using [employer] dictation software. Please allow for errors in benzene operator, while rare they do occur. Gonzales Conley [employer] SPECIALIST rendered care for this patient independently, reviewed the findings and plan as documented in the note above and agree with plan. I did not physically speak with or examine the patient on this date. Objective - Vital Signs Vital signs: Vital Signs Temp 98.0 F 09/21/24 07:24 Pulse 78 09/21/24 07:24 Resp 16 09/21/24 07:24 BP 135/81 09/21/24 07:24 Pulse Ox 99 09/21/24 07:24 FiO2 Intake & Output 09/20/24 09/21/24 09/21/24 18:59 06:59 18:59 Output Total 750 Balance -750 Weight 50.802 kg 50.802 kg Output: Urine 750 - Labs CBC & Chem 7: 09/21/24 07:45 09/21/24 07:45 Labs: Abnormal Lab Results - Last 24 Hours (Table) 09/20/24 09/20/24 09/21/24 Range/Units 21:37 21:37 07:45 WBC 4.34 L (4.50-10.00) 10*3/uL RBC 3.55 L 3.38 L (4.10-5.20) 10*6/uL Hgb 11.7 L 11.1 L (12.0-15.0) g/dL Hct 33.7 L 32.8 L (37.2-46.3) % MCH 33.0 H 32.8 H (27.0-32.0) pg MPV 9.1 L (9.5-12.2) fL Lymphocytes # 0.85 L (0.90-5.00) 10*3/uL Eosinophils # 0.02 L 0.01 L (0.04-0.35) 10*3/uL Sodium 130 L (137-145) mmol/L Chloride 96 L (98-107) mmol/L 09/21/24 Range/Units 07:45 WBC (4.50-10.00) 10*3/uL RBC (4.10-5.20) 10*6/uL Hgb (12.0-15.0) g/dL Hct (37.2-46.3) % MCH (27.0-32.0) pg MPV (9.5-12.2) fL Lymphocytes # (0.90-5.00) 10*3/uL Eosinophils # (0.04-0.35) 10*3/uL Sodium 133 L (137-145) mmol/L Chloride (98-107) mmol/L
[2024-09-21] MEDS: ceFAZolin 2 GM in DEXTROSE 5% IN WATER 50 ML IVPB ONE (15:29)
[2024-09-21] MEDS: SODIUM CHLORIDE 0.9% 1,000 ML IV SCH (15:29)
[2024-09-21] MEDS: ceFAZolin 2 GM in DEXTROSE 5% IN WATER 50 ML IVPB SCH (18:13)
[2024-09-21] MEDS: ASPIRIN 81 MG PO SCH (20:11)
[2024-09-21] MEDS: SENNOSIDES-DOCUSATE SODIUM 1 EACH TAB PO SCH (20:11)
[2024-09-22] MEDS: LEVOXYL PO SCH (06:08)
[2024-09-22] MEDS ORDERED: HYDROmorphone 0.5 MG/0.5 ML SYRINGE IVP PRN (07:00)
[2024-09-22] MEDS ORDERED: droPERidol 2.5 MG/ML VIAL IVP PRN (07:00)
--- NOTE | 2024-09-22 08:08 | P.PN ---
Subjective Progress Note Date: 09/22/24 Principal diagnosis: Left femoral neck fracture status post hemiarthroplasty Patient denies any issues overnight, pain has been well-controlled, she denies any chest pain or shortness of breath, she notes some numbness to the anterolateral aspect of her thigh but denies any calf pain. She has been able to tolerate a diet since surgery and has been passing gas appropriately. Objective - Vital Signs Vital signs: Vital Signs Temp 97.4 F L 09/22/24 07:13 Pulse 98 09/22/24 07:13 Resp 15 09/22/24 07:13 BP 108/63 09/22/24 07:13 Pulse Ox 100 09/22/24 07:13 FiO2 Intake & Output 09/21/24 09/22/24 09/22/24 18:59 06:59 18:59 Intake Total 1441 Output Total 825 Balance 616 Intake: IV 1001 Intake, IV Titration 440 Amount Sodium Chloride 0.9% 1, 390 000 ml @ 65 mls/hr IV . [id number] [facility] Rx#:[id number] ceFAZolin 2 gm In 50 Dextrose 5% in Water 50 ml @ 100 mls/hr IVPB ONCE ONE Rx#:[id number] Output: Urine 525 Estimated Blood Loss 300 Other: Voiding Method Indwelling Catheter Indwelling Catheter # Voids 2 2 # Bowel Movements 1 1 - Exam On exam of the left hip her dressings are clean dry and intact Her thigh is soft and compressible Calf is also soft and compressible There is some decreased light touch sensation to the anterolateral aspect of the thigh Patient is able to actively flex and extend the knee as well as plantar and dorsiflex the ankle She has palpable DP pulse and brisk capillary refill to the foot She has intact light touch sensation to the distal aspect of the extremity - Labs CBC & Chem 7: 09/21/24 07:45 09/21/24 07:45 Labs: Abnormal Lab Results - Last 24 Hours (Table) 09/21/24 09/21/24 Range/Units 07:45 13:15 Sodium 133 L (137-145) mmol/L POC Glucose (mg/dL) 138 H (70-110) mg/dL Assessment and Plan Assessment: Left femoral neck fracture now status post left cemented hip hemiarthroplasty (1) Fracture of femoral neck, left Current Visit: Yes Status: Acute Code(s): S72.002A - FRACTURE OF UNSP PART OF NECK OF LEFT FEMUR, INIT SNOMED Code(s): 0990624 Plan: Patient is weightbearing as tolerated to the left lower extremity Aspirin 81 mg twice daily for DVT prophylaxis Continue multimodal pain regimen PT/OT evaluations for gait training and assessment for discharge recommendations Patient should maintain her dressing until her follow-up appointment Appreciate medicine evaluation for ongoing medical management Discussed with the patient regarding follow-up with her PCP and mini baccarat dealer regarding her overall bone health, she has noted previous discussions with them in the past as well as previous recommendations for medical therapy however she had allergies to several of the recommended medications. There was some discussion of beginning hormone therapy for her in regards to her bone health however she had concerns about potential effects on other areas of her body. She will have further follow-up with her PCP and mini baccarat dealer shortly after this hospitalization to continue those discussions and potentially evaluate for any new therapies that may be appropriate for her given her reported allergies.
--- NOTE | 2024-09-22 08:21 | P.OP ---
Date of Procedure: 09/21/24 Preoperative Diagnosis: Left femoral neck fracture Postoperative Diagnosis: Same Procedure(s) Performed: Left hip cemented hemiarthroplasty Implants: Greater Accolade C [4] mm stem [45] mm outer diameter head 28 mm inner diameter head Anesthesia: MAHENDRA Surgeon: Jagdish Headley Vocational Psychologist #1: Milan Rangel Estimated Blood Loss (ml): 300 Pathology: none sent Condition: stable Disposition: PACU Indications for Procedure: Complete subcapital femoral neck fracture in an ambulatory patient who wished to proceed with arthroplasty versus closed reduction/open reduction and internal fixation Operative Findings: Complete subcapital femoral neck fracture without significant displacement however intraoperatively the bone quality at the site of the fracture was noted to be quite weak Description of Procedure: Detailed discussion was had with the patient and family regarding the nature of the injury. With a fracture as a result of minor trauma this is an indication of poor bone quality and they are encouraged to discuss further metabolic testing and workup with their primary care physician in coordination with our team and possibly even an enocrinologist. They sustained an unstable hip fracture. Based on their baseline ambulatory status this is an injury that would greatly benefit from surgical intervention in order to provide patient with the best chance of regaining mobility after this injury. We discussed non operative treatment is theoretically possible but would require prolonged non weight bearing to the affected leg which would ultimately result in prolonged immobilization and is associated with significantly increased mortality rates. We discussed that the most appropriate surgical option for this injury would be an arthroplasty type of procedure, we did discuss that their overall fracture location and alignment would allow for the potential of fixation however there is a risk of needing further operations and overall patient would like a surgic al option that provides her the best chance of avoiding the need for future surgery. Additionally we discussed the options of hemiarthroplasty versus total hip arthroplasty, patient does not have significant functional demands outside of activities of daily living and overall I think a hemiarthroplasty would provide them with a good functional hip that would allow her to complete her desired activities. The risks of surgery include scarring, risk of swelling and possible permanent swelling of the affected extremity, superficial vs deep infections, damage to surrounding structures including muscles, nerve, tendons, blood vessels, hardware failure, leg length discrepancy, intraoperative fracture, compartment syndrome, need for additional future surgery, blood clots, heart attack, . Patient understands these risks and wishes to proceed with surgery. Written consent was obtained Benefits include replacing the fractured area of bone and helping with baseline pain, providing the patient with the opportunity to weight bear on the extremity immediately after surgery. We also discussed the likely post operative course after surgery including several days in the hospital after surgery and evaluation by the PT and OT staff to aid in determining the proper destination after their hospitalization, they may require a period of time at a rehab or nursing facility. We also discussed realistic expectations regarding function after this injury, the best case scenario is she returns to her baseline functional level but many times patients become more depending on support aids such as walkers/canes/or wheelchairs based on their previous level of function. After repeated discussion of the above details, risks and benefits patient wished to proceed with surgical intervention to the left hip in the form of a hemiarthroplasty. The patient was brought to the operating room, and after induction of general anesthesia was placed supine on the U[place] table, care was taken to pad and protect all bony prominences. Positioning was checked with fluoroscopy and preoperative measurements were taken for estimations of leg length and offset. The right hip was then prepped and draped in a normal fashion. A standard timeout was performed to again confirm the correct patient and laterality of the procedure. Antibiotics as well as TXA were confirmed to be administered prior to incision. A 12 cm incision was then made starting 2 fingerbreadths distal and 2 finger breaths lateral to the ASIS in line with the proximal femur. The skin was incised sharply. Subcutaneous tissues were divided sharply. Electrocautery was used for hemostasis. The fascia was split in line with skin incision. The interval between the sartorius and tensor fascia jenni was then bluntly developed. The posterior fascia was opened with electrocautery. The lateral circumflex vessels were identified and cauterized prior to sectioning. A retractor was placed along the superior femoral neck as well as the anterior acetabular rim. A wide capsulectomy was performed. Once the joint capsule was entered expected hemarthrosis was encountered the neck cut was then made approximately 1 1/2 cm above the level of the lesser trochanter. The head and remnant femoral neck at the fracture site was extracted. Attention was then paid towards preparing the proximal femur. The central region was cleared of soft tissue. A canal finder was used to find the femoral canal. Sequential broaching was performed up to size 4 taking care to lateralize proximally. A calcar planer was used to fashion the medial calcar. There was good rotational stability. A standard neck along with a 45 mm outer diameter head was placed. The hip was gently reduced. Fluoroscopy was used to check the adequacy of pos itioning along with leg lengths. I felt both were appropriate. The hip was gently dislocated. The trial components were removed. At this point the femoral canal was then prepped initially a cement restrictor was placed at a depth 1-2 centimeters distal to the planned level of the distal component. Pulsatile lavage was used to clean the canal followed by application of vaginal packing soaked in epinephrine. Cement was then placed into the canal this was initially pressurized with thumb pressure in the proximal aspect of the femur followed by pressurization with the cement gun. the final size 4 implant was then placed and held in the appropriate position till the cement was hardened. A 45 mm outer diameter head and 28 mm inner diameter head was placed. This was gently impacted. The acetabulum was irrigated and the hip was then gently reduced. Final fluoroscopic view showed adequate placement of the implant implant as well as an appropriate cement mantle along with confucianist of leg length. Stability was checked and found to be stable with 90 of external rotation and 60 of extension of the right hip this was confirmed with fluoroscopy as well as direct visualization. The wound was irrigated with sterile lavage. The fascia was closed with running 1 strata fix suture. The subcutaneous tissues were reapproximated interrupted 0 and 2-0 Vicryl sutures. The skin was closed with 2-0 subcuticular strata fix suture. Skin adhesive and A sterile dressing was applied. The patient was then awoken from sedation and transferred to recovery room in good condition. After patient was moved off the operating room table leg lengths were assessed and found to be appropriately restored. Patient will be weightbearing as tolerated to the right lower extremity Patient will be prescribed aspirin 81mg bid to aid in DVT prophylaxis starting tomorrow Patient should maintain their dressing until the first postoperative appointment We will plan to see patient back 2 weeks following his procedure for incision check and updated x-rays
[2024-09-22 09:13] LABS: Glucose,Whole Blood 111 mg/dL (70-110)
[2024-09-22 09:31] LABS: BUN/Creat Ratio 18.71 Ratio (12.00-20.00); Blood Urea Nitrogen 13.1 mg/dL (9.0-27.0); Calcium 8.9 mg/dL (8.7-10.3); Carbon Dioxide 25.3 mmol/L (21.6-31.8); Chloride 101 mmol/L (96-109); Glucose 116 mg/dL (70-110); Magnesium 1.8 mg/dL (1.5-2.4); Potassium 4.7 mmol/L (3.5-5.5); Sodium 134 mmol/L (135-145)
[2024-09-22] MEDS: SODIUM CHLORIDE 0.9% 500 ML 500 ML IV ONE (09:40)
[2024-09-22 09:42] LABS: Basophils # (A) 0.01 X 10*3/uL (0.00-0.10); Basophils % (A) 0.1 %; Eosinophils # (A) 0 X 10*3/uL (0.04-0.35); Eosinophils % (A) 0 %; HCT 25.2 % (37.2-46.3); HGB 8.2 g/dL (12.0-15.0); Lymphocytes # (A) 0.81 X 10*3/uL (0.90-5.00); Lymphocytes % (A) 7.4 %; MCH 32.5 pg (27.0-32.0); MCHC 32.5 g/dL (32.0-37.0); Mean Platelet Volume 10.3 FL (9.5-12.2); Monocytes # (A) 0.67 X 10*3/uL (0.20-1.00); Monocytes % (A) 6.1 %; NRBC Per 100 WBC 0 X 10*3/uL (0.00-0.01); Neutrophils # (A) 9.42 X 10*3/uL (1.80-7.70); Neutrophils % (A) 85.9 %; Platelet Count 168 X 10*3/uL (140-440); RBC 2.52 X 10*6/uL (4.10-5.20); RDW 12.2 % (11.5-14.5); WBC 10.96 X 10*3/uL (4.50-10.00)
--- NOTE | 2024-09-22 14:38 | P.PN ---
Subjective Progress Note Date: 09/22/24 Hospital course: Patient is a very pleasant 79-year-old female with a past medical history of hypothyroidism, kidney stones, and previous complications with anesthesia via dizziness during postoperative period. She presented to the emergency department on 09/16/2024 status post trip and fall. Patient reports she was doing her daily ironing when her slipper became entangled with the cord for the iron resulting in her falling directly onto her left hip. She denied hitting he r head or having any loss of consciousness and denies any other injuries. Patient states she did not get part by her iron. Patient patient presents the department. Vital signs upon arrival show blood pressure 134/70, heart rate 84, respiratory rate 18, temp 98.3 F, and SpO2 of 99% on room air. X-ray pelvis revealed deformity of the left femoral neck. CT hip completed confirming x-ray findings of valgus impacted left femoral neck fracture. labs were completed and reviewed. CBC showing normocytic anemia with hemoglobin of 11.7. Coagulation profile normal findings. BMP showing hypochloremic hyponatremia with sodium of 130 and chloride of 96. Glucose 89. Calcium 9.8. Was admitted under orthopedic surgery team and after surgical clearance by overnight physician patient is scheduled to be taken down for OR this morning. Physical exam: Patient seen and fully evaluated at bedside this morning. She is day 1 postop status post left hip cemented hemiarthroplasty. Patient reports having an eventful morning this morning. RN reports that patient had a pre syncopal/syncopal episode when she got up with physical therapy this morning. They report upon patient standing for the first time she "passed out" for a couple of seconds. Patient did not fall or hit her head, physical therapy was there and holding onto patient and immidiately assisted her back into bed. Patient immediately awake and alert, but was reported to have hypotension with blood pressure 80 systolic at time of event and a stable glucose of 111. After a few moments blood pressure increased to 108/63 with heart rate of 98. Patient seen and fully evaluated at bedside. She reports mild to moderate pain throughout the left hip and femur. She states this postoperative pain is contr olled with current pain medication regimen. Patient is free from any other complaints, she reports immediately after her episode this morning she felt a little shaky in her legs and weak, but denied having any dizziness, lightheadedness, chest pain, palpitations, shortness of breath, or experiencing any focal numbness/tingling/weakness. Patient denies experiencing any postoperative nausea or vomiting, Perez catheter in place and patient reports having a bowel movement this morning without any difficulties. Vital signs reviewed and stable. General: Nontoxic, no distress and appears stated age. Derm: Skin warm and dry, normal coloration for ethnicity. Head: Atraumatic, normocephalic and symmetric. Eyes: EOM's intact, no lid lag, and anicteric sclera Mouth: no lip lesions, mucus membranes moist Cardiovascular: regular rate and rhythm with normal S1S2, no murmur, positive posterior tibial pulses bilaterally, and cap refill < 2 seconds. Lungs: Respirations even, regular, and unlabored on room air. Lungs CTA bilaterally, no rhonchi, no rales, no wheezing, and no accessory muscle usage. Abdominal: soft, nontender to palpation, no guarding, no appreciable organomegaly Ext: No gross muscle atrophy, no edema, no contractures. Movement and sensation intact. Neuro: Speech clear, face symmetrical and CN II-XII grossly intact with no noted focal neuro deficits Psych: Alert and oriented to person, place, time, and situation. Appropriate and pleasant affect. Assessment and Plan of Care: Status post left hip cemented hemiarthroplasty -Management per primary admitting orthopedic surgery team including DVT prophylaxis, pain management, wound/dressing management, weightbearing, and PT/OT. -Currently on DVT prophylaxis with aspirin 81 mg twice daily. Syncope/presyncope, secondary to vasovagal event vs orthostatic hypotension - RN reports that patient had a presyncopal/syncopal episode when she got up with physical therapy this morning. They report upon patient standing for the first time post op she "passed out" for a couple of seconds. Patient did not fall or hit her head, physical therapy was there and holding onto patient and immidiately assisted her back into bed. Patient immediately awoken and was found to have hypotension with blood pressure 80 systolic and a stable glucose of 111. After a few moments blood pressure increased to 108/63 with heart rate of 98. - Patient free from any other complaints, she reports feeling a little shaky and weak but denied having any dizziness, lightheadedness, chest pain, palpitations, shortness of breath, or experiencing any focal numbness/tingling/weakness. - Will place patient on telemetry monitoring and administer a 500 cc bolus of 0.9% normal saline. - Orthostatic vitals ordered and patient to be maintained on strict fall precautions. - Continue BETSEY hose to bilateral lower extremities. Acute postoperative blood loss anemia on anemia of chronic disease -Preoperative hemoglobin was 11.1 with postoperative hemoglobin of 8.2. No active bleeding noted, no need for transfusion at this time. Order placed for repeat CBC this evening and again tomorrow morning. Will monitor closely and transfuse as needed for hemoglobin less than 7 or if pt has any further episodes of hypotension or presycnopal events. Hypochloremic hyponatremia -Improving with gentle IV fluid hydration. Continue with gentle IV fluid hydration with 0.9% normal saline 65 cc/h. Will continue to monitor closely with repeat a.m. labs and place additional orders if indicated based upon these findings. Hypothyroidism -Continue levothyroxine 88 mcg daily. Data and imaging reviewed: Morning labs reviewed. CBC showing bicytopenia with WBC count of 4.34 and hemoglobin of 11.1. BMP showing hyponatremia with sodium of 133 hypochloremia resolved with chloride of 101. Blood glucose 97. Calcium 9.2. Vital signs reviewed. Blood pressure 135/81, heart rate 78, respiratory rate 16, temp 98.0 F, and SpO2 of 99% on room air Thank you for allowing us to participate in the care of this pleasant patient. Do not hesitate to contact us with questions. Someone can be reached from the [facility] group all hours of the day at [phone] or via [place] [facility]. Patient was seen independently by Nurse Pracitioner. This document was prepared using [employer] dictation software. Please allow for errors in forest practices field coordinator, while rare they do occur. Gonzales Conley NP rendered care for this patient independently, reviewed the findings and plan as documented in the note above and agree with plan. I did not physically speak with or examine the patient on this date. Objective - Vital Signs Vital signs: Vital Signs Temp 97.4 F L 09/22/24 07:13 Pulse 98 09/22/24 07:13 Resp 15 09/22/24 07:13 BP 108/63 09/22/24 07:13 Pulse Ox 100 09/22/24 07:13 FiO2 Intake & Output 09/21/24 09/22/2425 18:59 06:59 18:59 Intake Total 1441 Output Total 825 Balance 616 Intake: IV 1001 Intake, IV Titration 440 Amount Sodium Chloride 0.9% 1, 390 000 ml @ 65 mls/hr IV . [id number] [facility] Rx#:[id number] ceFAZolin 2 gm In 50 Dextrose 5% in Water 50 ml @ 100 mls/hr IVPB ONCE ONE Rx#:[id number] Output: Urine 525 Estimated Blood Loss 300 Other: Voiding Method Indwelling Catheter Indwelling Catheter # Voids 2 2 # Bowel Movements 1 1 - Labs CBC & Chem 7: 09/22/24 03:08 09/22/24 03:08 Labs: Abnormal Lab Results - Last 24 Hours (Table) 09/21/24 09/22/24 09/22/24 Range/Units 13:15 03:08 09:11 Sodium 134 L (135-145) mmol/L Glucose 116 H (70-110) mg/dL POC Glucose (mg/dL) 138 H 111 H (70-110) mg/dL
[2024-09-22 18:27] LABS: HCT 24.6 % (37.2-46.3); MCH 33.5 pg (27.0-32.0); MCHC 34.1 g/dL (32.0-37.0); Mean Platelet Volume 9.3 fL (9.5-12.2); Platelet Count 167 10*3/uL (140-440); RBC 2.51 10*6/uL (4.10-5.20); RDW 12.4 % (11.5-14.5); WBC 11.49 10*3/uL (4.50-10.00)
[2024-09-22 18:33] LABS: HGB 8.4 g/dL (12.0-15.0)
[2024-09-23 08:21] LABS: HCT 28.7 % (37.2-46.3); HGB 9.3 g/dL (12.0-15.0); MCHC 32.4 g/dL (32.0-37.0); MCV 101.8 FL (80.0-97.0); Mean Platelet Volume 10.1 FL (9.5-12.2); NRBC Per 100 WBC 0 X 10*3/uL (0.00-0.01); Platelet Count 208 X 10*3/uL (140-440); RBC 2.82 X 10*6/uL (4.10-5.20); RDW 12.6 % (11.5-14.5)
[2024-09-23 08:23] LABS: BUN/Creat Ratio 24.43 Ratio (12.00-20.00); Blood Urea Nitrogen 17.1 mg/dL (9.0-27.0); Glucose 83 mg/dL (70-110); Magnesium 1.8 mg/dL (1.5-2.4)
[2024-09-23 08:24] LABS: Calcium 8.9 mg/dL (8.7-10.3); Carbon Dioxide 22.4 mmol/L (21.6-31.8); Chloride 103 mmol/L (96-109); Potassium 3.8 mmol/L (3.5-5.5); Sodium 137 mmol/L (135-145)
--- NOTE | 2024-09-23 10:54 | P.PN ---
Subjective Progress Note Date: 09/23/24 This is a 79-year-old female who is status post left hip cemented hemiarthroplasty. This is postoperative day #2 and patient is seen and evaluated at bedside today. Patient states that she is doing well and her pain is well-controlled today. Patient states that she has not worked with physical therapy yet today. Patient denies any dizziness or lightheadedness today. Patient states that she has been able to stand and use the bedside commode without any symptoms of dizziness. Objective - Vital Signs Vital signs: Vital Signs Temp 97.8 F 09/23/24 07:25 Pulse 94 09/23/24 08:01 Resp 16 09/23/24 07:25 BP 114/65 09/23/24 08:01 Pulse Ox 96 09/23/24 07:25 FiO2 Intake & Output 09/22/24 09/23/24 09/23/24 18:59 06:59 18:59 Other: # Voids 4 2 1 # Bowel Movements 1 1 1 - Exam Vital signs are stable. Patient is in no acute distress and is alert and oriented 3. Calf is soft and nontender to palpation. Dressing is clean, dry, and intact. Patient has full foot and ankle motion without pain or difficulty. Sensation intact. Neurovascular status and circulatory status are intact. - Labs CBC & Chem 7: 09/23/24 03:39 09/23/24 03:39 Labs: Abnormal Lab Results - Last 24 Hours (Table) 09/22/24 09/23/24 09/23/24 Range/Units 18:13 03:39 03:39 WBC 11.49 H 11.80 H (4.50-10.00) 10*3/uL RBC 2.51 L 2.82 L (4.10-5.20) 10*6/uL Hgb 8.4 L D 9.3 L (12.0-15.0) g/dL Hct 24.6 L 28.7 L (37.2-46.3) % MCV 98.0 H 101.8 H (80.0-97.0) fL MCH 33.5 H 33.0 H (27.0-32.0) pg MPV 9.3 L (9.5-12.2) fL BUN/Creatinine Ratio 24.43 H (12.00-20.00) Ratio Assessment and Plan (1) S/P hip hemiarthroplasty Current Visit: Yes Status: Acute Code(s): Z96.649 - PRESENCE OF UNSPECIFIED ARTIFICIAL HIP JOINT SNOMED Code(s): 919015843 (2) Fall Current Visit: Yes Status: Acute Code(s): W19.XXXA - UNSPECIFIED FALL, INITIAL ENCOUNTER SNOMED Code(s): 4004517 (3) Fracture of femoral neck, left Current Visit: Yes Status: Acute Code(s): S72.002A - FRACTURE OF UNSP PART O F NECK OF LEFT FEMUR, INIT SNOMED Code(s): 0704158 Plan: Continue routine postop care and pain control. Continue anticoagulation. Weightbearing as tolerated with a walker. Leave dressing in place until you follow up visit Appreciate input from internal medicine. Anticipate discharge home with homecare or to [facility] in the next 24-48 hours. Patient was seen and independently evaluated today, I agree with the above history and exam. Overall patient is doing very well her pain is well- controlled and she has been ambulate able to ambulate with the nursing staff short distances however formal PT evaluation has not been performed so far. She denies any issues with chest pain or shortness of breath as well as calf pain. On exam her dressings are clean dry and intact, she has expected tenderness around her incision site but gentle hip motion is well-tolerated she is able to plantar and dorsiflex the left ankle she has a palpable DP pulse as well as brisk capillary refill throughout the left foot, she notes some numbness around her incision site however light touch sensation is intact throughout the remainder of the extremity. Labs reviewed showed expected postop drop in hemoglobin however this has since stabilized and patient is exhibiting no signs that would warrant transfusion at this time Will plan to see patient back in the office 2 weeks after her surgery for incision check as well as updated images Anticipate discharge in the coming days after final PT evaluations and recommendations for posthospital placement Patient will continue with aspirin 81 mg twice daily for DVT prophylaxis postoperatively Jagdish Headley MD
--- NOTE | 2024-09-23 14:56 | P.PN ---
Subjective Progress Note Date: 09/23/24 Hospital course: Patient is a very pleasant 79-year-old female with a past medical history of hypothyroidism, kidney stones, and previous complications with anesthesia via dizziness during postoperative period. She presented to the emergency department on 09/16/2024 status post trip and fall. Patient reports she was doing her daily ironing when her slipper became entangled with the cord for the iron resulting in her falling directly onto her left hip. She denied hitting he r head or having any loss of consciousness and denies any other injuries. Patient states she did not get part by her iron. Patient patient presents the department. Vital signs upon arrival show blood pressure 134/70, heart rate 84, respiratory rate 18, temp 98.3 F, and SpO2 of 99% on room air. X-ray pelvis revealed deformity of the left femoral neck. CT hip completed confirming x-ray findings of valgus impacted left femoral neck fracture. labs were completed and reviewed. CBC showing normocytic anemia with hemoglobin of 11.7. Coagulation profile normal findings. BMP showing hypochloremic hyponatremia with sodium of 130 and chloride of 96. Glucose 89. Calcium 9.8. Was admitted under orthopedic surgery team and after surgical clearance by overnight physician patient is scheduled to be taken down for OR this morning. Physical exam: Patient seen and fully evaluated at bedside this morning. She is day 2 postop status post left hip cemented hemiarthroplasty. She is currently doing well. She denies any further episodes of presyncope/syncope since initial time out of bed with physical therapy. Patient states she thinks she just turned her head t o change positions too quickly and that is all it took. Patient denies any dizziness, lightheadedness, headache, changes in vision or hearing, chest pain or palpitations, shortness of breath, nausea or vomiting, difficulties with urination or bowel function. Patient reports having a bowel movement this morning and urinating without difficulties. She reports postoperative pain is mild to moderate diffusely worse with movement. Vital signs reviewed and stable. General: Nontoxic, no distress and appears stated age. Derm: Skin warm and dry, normal coloration for ethnicity. Head: Atraumatic, normocephalic and symmetric. Eyes: EOM's intact, no lid lag, and anicteric sclera Mouth: no lip lesions, mucus membranes moist Cardiovascular: regular rate and rhythm with normal S1S2, no murmur, positive posterior tibial pulses bilaterally, and cap refill < 2 seconds. Lungs: Respirations even, regular, and unlabored on room air. Lungs CTA bilaterally, no rhonchi, no rales, no wheezing, and no accessory muscle usage. Abdominal: soft, nontender to palpation, no guarding, no appreciable org anomegaly Ext: No gross muscle atrophy, no edema, no contractures. Movement and sensation intact. Neuro: Speech clear, face symmetrical and CN II-XII grossly intact with no noted focal neuro deficits Psych: Alert and oriented to person, place, time, and situation. Appropriate and pleasant affect. Assessment and Plan of Care: Status post left hip cemented hemiarthroplasty -Management per primary admitting orthopedic surgery team including DVT prophyla xis, pain management, wound/dressing management, weightbearing, and PT/OT. -Currently on DVT prophylaxis with aspirin 81 mg twice daily. Syncope/presyncope, secondary to vasovagal event vs orthostatic hypotension - Pt had a reported presyncopal/syncopal episode when she got up with physical therapy day one post-op (09/22/24). It was reported that upon pt standing and getting up with PT for the first time post op, she "passed out" for a couple of seconds. Patient did not fall or hit her head, physical therapy was there and holding onto patient and immidiately assisted her safely back into bed. Patient immediately awoken and was found to have hypotension with a reported blood pressure 80 systolic and a stable glucose of 111. After a few moments blood pressure increased to 108/63 with heart rate of 98. - Patient free from any other complaints, she reports feeling a little shaky and weak but denied having any dizziness, lightheadedness, chest pain, palpitations, shortness of breath, or experiencing any focal numbness/tingling/weakness. -Patient remains free from any further episodes of hypotension or syncopal/presyncopal episodea and free from any neuro/cardiac complaints - Orthostatic vitals negative. - Maintain fall precautions. - Continue BETSEY hose to bilateral lower extremities. Acute postoperative blood loss anemia on anemia of chronic disease, stable and expected finding -Preoperative hemoglobin was 11.1 with postoperative hemoglobin decreasing down to 8.2 and currently stable at 9.3. No active bleeding noted, no need for transfusion at this time. No need for further intervention. Hypochloremic hyponatremia -Resolved after gentle IV fluid hydration. Will continue to monitor closely with repeat a.m. labs and place additional orders if indicated based upon these f indings. Hypothyroidism -Continue levothyroxine 88 mcg daily. Data and imaging reviewed: Labs reviewed. CBC was trended with hemoglobin resulting at 8.2, 8.4, and 9.3. Morning labs showing WBC count of 11.80, hemoglobin of 9.3, hematocrit of 28.7, MCV of 101.8, and MCH of 33.0. BMP unremarkable. Blood glucose 83. Magnesium 1.8. Vital signs reviewed. Blood pressure 105/58, heart rate 98, respiratory rate 16, and SpO2 of 96% on room air. Orthostatic vitals show a decrease in BP on standing but are still negative for orthostatic hypotension with blood pressure supine 112/62, sitting 114/65, and standing 99/62. Discussed plan of care with orthopedic surgery PA, anticipate discharge home with home care tomorrow. Thank you for allowing us to participate in the care of this pleasant patient. Do not hesitate to contact us with questions. Someone can be reached from the [facility] hospitalist group all hours of the day at [phone] or via [email or web address]. Patient was seen independently by Nurse Pracitioner. This document was prepared using [employer] dictation software. Please allow for errors in air bag curer, while rare they do occur. Gonzales Conley NP rendered care for this patient independently, reviewed the find ings and plan as documented in the note above and agree with plan. I did not physically speak with or examine the patient on this date. Objective - Vital Signs Vital signs: Vital Signs Temp 97.8 F 09/23/24 07:25 Pulse 94 09/23/24 08:01 Resp 16 09/23/24 07:25 BP 114/65 09/23/24 08:01 Pulse Ox 96 09/23/24 07:25 FiO2 Intake & Output 09/22/24 09/23/24 09/23/24 18:59 06:59 18:59 Other: # Voids 4 2 1 # Bowel Movements 1 1 - Labs CBC & Chem 7: 09/23/24 03:39 09/23/24 03:39 Labs: Abnormal Lab Results - Last 24 Hours (Table) 09/22/24 09/22/2425 Range/Units 03:08 03:08 09:11 WBC 10.96 H (4.50-10.00) X 10*3/uL RBC 2.52 L (4.10-5.20) X 10*6/uL Hgb 8.2 L (12.0-15.0) g/dL Hct 25.2 L (37.2-46.3) % MCV 100.0 H (80.0-97.0) FL MCH 32.5 H (27.0-32.0) pg MPV (9.5-12.2) fL Immature Gran # 0.05 H (0.00-0.04) X 10*3/uL Neutrophils # 9.42 H (1.80-7.70) X 10*3/uL Lymphocytes # 0.81 L (0.90-5.00) X 10*3/uL Eosinophils # 0 L (0.04-0.35) X 10*3/uL Sodium 134 L (135-145) mmol/L BUN/Creatinine Ratio (12.00-20.00) Ratio Glucose 116 H (70-110) mg/dL POC Glucose (mg/dL) 111 H (70-110) mg/dL 09/22/24 09/23/24 09/23/24 Range/Units 18:13 03:39 03:39 WBC 11.49 H 11.80 H (4.50-10.00) X 10*3/uL RBC 2.51 L 2.82 L (4.10-5.20) X 10*6/uL Hgb 8.4 L D 9.3 L (12.0-15.0) g/dL Hct 24.6 L 28.7 L (37.2-46.3) % MCV 98.0 H 101.8 H (80.0-97.0) FL MCH 33.5 H 33.0 H (27.0-32.0) pg MPV 9.3 L (9.5-12.2) fL Immature Gran # (0.00-0.04) X 10*3/uL Neutrophils # (1.80-7.70) X 10*3/uL Lymphocytes # (0.90-5.00) X 10*3/uL Eosinophils # (0.04-0.35) X 10*3/uL Sodium (135-145) mmol/L BUN/Creatinine Ratio 24.43 H (12.00-20.00) Ratio Glucose (70-110) mg/dL POC Glucose (mg/dL) (70-110) mg/dL
[2024-09-24 08:19] VITALS: BP 112/65; PULSE 102; RESP 18; TEMP 97.5
[2024-09-24 08:29] LABS: Basophils # (A) 0.02 X 10*3/uL (0.00-0.10); Basophils % (A) 0.3 %; Eosinophils # (A) 0.11 X 10*3/uL (0.04-0.35); Eosinophils % (A) 1.4 %; HCT 24.4 % (37.2-46.3); HGB 7.9 g/dL (12.0-15.0); Lymphocytes # (A) 1.17 X 10*3/uL (0.90-5.00); Lymphocytes % (A) 15.1 %; MCH 32.6 pg (27.0-32.0); MCHC 32.4 g/dL (32.0-37.0); MCV 100.8 FL (80.0-97.0); Mean Platelet Volume 10.1 FL (9.5-12.2); Monocytes # (A) 0.66 X 10*3/uL (0.20-1.00); Monocytes % (A) 8.5 %; NRBC Per 100 WBC 0 X 10*3/uL (0.00-0.01); Neutrophils # (A) 5.76 X 10*3/uL (1.80-7.70); Neutrophils % (A) 74.3 %; Platelet Count 211 X 10*3/uL (140-440); RBC 2.42 X 10*6/uL (4.10-5.20); RDW 12.4 % (11.5-14.5); WBC 7.75 X 10*3/uL (4.50-10.00)
--- NOTE | 2024-09-24 10:15 | P.PN ---
Subjective Progress Note Date: 09/24/24 This is a 79-year-old female who is status post left hip cemented hemiarthroplasty. This is postoperative day #3 and patient is seen and evaluated at bedside today. Patient states that her pain is well-controlled. Patient states that she got lightheaded when attempting to work with physical th erapy today. Otherwise, patient denies any new complaints today. Objective - Vital Signs Vital signs: Vital Signs Temp 97.5 F L 09/24/24 07:00 Pulse 102 H 09/24/24 07:00 Resp 18 09/24/24 07:00 BP 112/65 09/24/24 07:00 Pulse Ox 97 09/24/24 07:00 FiO2 Intake & Output 09/23/24 09/24/24 09/24/24 18:59 06:59 18:59 Other: # Voids 1 2 # Bowel Movements 1 - Exam Vital signs are stable. Patient is in no acute distress and is alert and or iented 3. Calf is soft and nontender to palpation. Dressing is clean, dry, and intact. Patient has full foot and ankle motion without pain or difficulty. Sensation intact. Neurovascular status and circulatory status are intact. - Labs CBC & Chem 7: 09/24/24 02:50 09/23/24 03:39 Labs: Abnormal Lab Results - Last 24 Hours (Table) 09/24/24 Range/Units 02:50 RBC 2.42 L (4.10-5.20) X 10*6/uL Hgb 7.9 L (12.0-15.0) g/dL Hct 24.4 L (37.2-46.3) % MCV 100.8 H (80.0-97.0) FL MCH 32.6 H (27.0-32.0) pg Assessment and Plan (1) S/P hip hemiarthroplasty Status: Acute Code(s): Z96.649 - PRESENCE OF UNSPECIFIED ARTIFICIAL HIP JOINT SNOMED Code(s): 551033181 (2) Fall Status: Acute Code(s): W19.XXXA - UNSPECIFIED FALL, INITIAL ENCOUNTER SNOMED Code(s): 6338948 (3) Fracture of femoral neck, left Status: Acute Code(s): S72.002A - FRACTURE OF UNSP PART OF NECK OF LEFT FEMUR, INIT SNOMED Code(s): 5163209 Plan: Continue routine postop care and pain control. Continue anticoagulation. Weightbearing as tolerated with a walker. Leave dressing in place until follow up visit . Appreciate input from internal medicine. Anticipate discharge home with homecare or to ECF in the next 24-48 hours. Patient was seen and independently evaluated today, I agree with the above interval history exam and plan. Patient had no acute issues overnight denies any new chest pain, shortness of breath, or leg pain. She has been able to ambulate and fifth with physical therapy her previously noted lightheadedness had resolved at the time of my exam. Overall patient has been cleared to discharge home after her PT evaluations. On exam her dressings are clean dry and intact she continues to have some numbness around the proximal anterolateral thigh, gentle hip motion is well-tolerated she has some mild tenderness at her incision site, she continues to have intact motor and sensory function to the distal leg ankle and foot. She has a palpable DP pulse and brisk capillary r efill throughout the foot, there is no calf pain or tenderness there is no thigh or calf swelling noted. Updated labs today did show a drop in her hemoglobin to 7.9 however with her improved symtpoms I do not feel transfusion is not warranted at this time. Patient will plan to discharge home later today Will plan to see patient back 2 weeks postoperatively Continue aspirin 81 mg twice daily for DVT prophylaxis Will have patient arranged with home therapy/transition to outpatient therapy based on progress We again discussed with the patient having further discussions with her primary care and endocrinology physicians regarding initiation of medications to further prevent bone loss In the meantime discussed initiating calcium and vitamin D supplementation Jagdish Headley MD
--- NOTE | 2024-09-24 10:36 | P.DS ---
Providers Date of admission: 09/20/24 21:18 Expected date of discharge: 09/24/24 Attending physician: Jagdish Headley MD Consults: 09/20/24 21:14 Consult Physician Routine Consulting Provider: Margi Reyes Consult Reason/Comments: medical management, preop clearance Do you want consulting provider notified?: Yes Primary care physician: Doroteo Abraham - Discharge Diagnosis(es) (1) S/P hip hemiarthroplasty Current Visit: Yes Status: Acute (2) Fall Current Visit: Yes Status: Acute (3) Fracture of femoral neck, left Current Visit: Yes Status: Acute Hospital Course: This is a 79-year-old female who sustained a fracture of her left hip after a fall. The patient presented for evaluation in the emergency room where x-rays revealed left femoral neck fracture. After discussion and consideration patient elects to proceed with left hip hemiarthroplasty. The patient is seen preoperatively by Dr. Headley and medically cleared for surgery by internal medicine. Patient is admitted to [facility] on 09/20/2024 and left hip cemented hemiarthroplasty is performed on 09/21/2024. The procedure is performed without complication or sequelae. The patient is doing well postoperatively. Labs and vital signs are stable on day of discharge. On day of discharge patient's hip incision is healing well. There is minimal erythema. There is no drainage noted at this time. There is minimal soft tissue swelling to the hip and thigh. Patient has full foot and ankle motion without difficulty or pain. Calf is soft and nontender to palpation. Neurovascular status to the left lower extremity is intact. Patient is discharged home in good condition. Please see med rec for accurate list of home medications. Patient Condition at Discharge: Stable Plan - Discharge Summary Discharge Rx Participant: Yes New Discharge Prescriptions: New Aspirin [Adult Low Dose Aspirin EC] 81 mg PO BID 30 Days #60 tab Sennosides [Senokot] 2 tab PO DAILY PRN #60 tablet PRN Reason: Constipation traMADol HCl [Ultram] 1 - 2 tab PO Q6H PRN #28 tab PRN Reason: Pain Ibuprofen 800 mg PO Q8H PRN #90 tab PRN Reason: Pain Continue Levothyroxine Sodium [Levoxyl] 88 mcg PO DAILY Fexofenadine HCl [Manjula Allergy] 60 mg PO DAILY PRN PRN Reason: Allergy Symptoms Pro-Symbiotic 1 cap PO DAILY Quercetin 800mg 800 mg PO BID flaxseed oiL [Flax Oil] 1,300 mg PO DAILY Ubidecarenone [Coenzyme Q-10] 100 mg PO DAILY Ergocalciferol [Vitamin D2 (1250 Mcg = 45105 Iu)] 1,250 mcg PO Q14D Ascorbic Acid [Vitamin C] 1,000 mg PO DAILY Cranberry Fruit Extract [Cranberry] 400 mg PO DAILY Cholibrium 266mg 266 mg PO BID Triamcinolone 0.1% Cream [Kenalog 0.1% Cream] 1 applicatio TOPICAL BID PRN PRN Reason: may use for up to 2weeks/month Turmeric Root Extract [Turmeric] 750 mg PO DAILY No Action Aspirin EC [Ecotrin Low Dose] 81 mg PO BID Discharge Medication List Ergocalciferol [Vitamin D2 (1250 Mcg = 93770 Iu)] 1,250 mcg PO Q14D 04/10/22 [History] Fexofenadine HCl [Manjula Allergy] 60 mg PO DAILY PRN 04/10/22 [History] Levothyroxine Sodium [Levoxyl] 88 mcg PO DAILY 04/10/22 [History] Ascorbic Acid [Vitamin C] 1,000 mg PO DAILY 05/01/22 [History] Aspirin EC [Ecotrin Low Dose] 81 mg PO BID 05/01/22 [History] Cranberry Fruit Extract [Cranberry] 400 mg PO DAILY 05/01/22 [History] Pro-Symbiotic 1 cap PO DAILY 05/01/22 [History] Quercetin 800mg 800 mg PO BID 05/01/22 [History] Cholibrium 266mg 266 mg PO BID 09/21/24 [History] Triamcinolone 0.1% Cream [Kenalog 0.1% Cream] 1 applicatio TOPICAL BID PRN 09/21/24 [History] Turmeric Root Extract [Turmeric] 750 mg PO DAILY 09/21/24 [History] Ubidecarenone [Coenzyme Q-10] 100 mg PO DAILY 09/21/24 [History] flaxseed oiL [Flax Oil] 1,300 mg PO DAILY 09/21/24 [History] Aspirin [Adult Low Dose Aspirin EC] 81 mg PO BID 30 Days #60 tab 09/23/24 [Rx] Ibuprofen 800 mg PO Q8H PRN #90 tab 09/23/24 [Rx] Sennosides [Senokot] 2 tab PO DAILY PRN #60 tablet 09/23/24 [Rx] traMADol HCl [Ultram] 1 - 2 tab PO Q6H PRN #28 tab 09/23/24 [Rx] Follow up Appointment(s)/Referral(s): Jagdish Headley MD [STAFF PHYSICIAN] - 10/01/24 10:00 am Doroteo Abraham MD [Primary Care Provider] - 1-2 days Activity/Diet/Wound Care/Special Instructions: Weightbearing as tolerated with walker. Leave dressing intact. Dressing may be removed by home care nurse or by patient in 7 days. Then change dressing twice daily until follow up. May shower with initial dressing intact and after removal. If dressing become saturated, please remove. Please take aspirin 81mg twice daily for 30 days to prevent blood clots. Recommend use of compression stockings daily until follow up to help prevent swelling and blood clots. May remove at night before sleeping. Please follow-up with [facility] in 2 weeks and call with any questions or concerns, . Discharge Disposition: HOME WITH HOME HEALTH SERVICES
[2024-09-24] MEDS ORDERED: FERROUS SULFATE 325 MG TAB PO SCH (12:30)
--- NOTE | 2024-09-24 13:38 | P.PN ---
Subjective Progress Note Date: 09/24/24 Hospital course: Patient is a very pleasant 79-year-old female with a past medical history of hypothyroidism, kidney stones, and previous complications with anesthesia via dizziness during postoperative period. She presented to the emergency department on 09/16/2024 status post trip and fall. Patient reports she was doing her daily ironing when her slipper became entangled with the cord for the iron resulting in her falling directly onto her left hip. She denied hitting he r head or having any loss of consciousness and denies any other injuries. Patient states she did not get part by her iron. Patient patient presents the department. Vital signs upon arrival show blood pressure 134/70, heart rate 84, respiratory rate 18, temp 98.3 F, and SpO2 of 99% on room air. X-ray pelvis revealed deformity of the left femoral neck. CT hip completed confirming x-ray findings of valgus impacted left femoral neck fracture. labs were completed and reviewed. CBC showing normocytic anemia with hemoglobin of 11.7. Coagulation profile normal findings. BMP showing hypochloremic hyponatremia with sodium of 130 and chloride of 96. Glucose 89. Calcium 9.8. Was admitted under orthopedic surgery team and after surgical clearance by overnight physician patient is scheduled to be taken down for OR this morning. Physical exam: Patient seen and fully evaluated at bedside this morning. She is day 3 postop status post left hip cemented hemiarthroplasty. She is currently doing well. She denies having any headache, lightheadedness, dizziness, chest pain, palpitations, shortness of breath, or experiencing any numbness/tingling/focal weakness in her extremities. Patient does report chronic dizziness/lightheadedness with quick movements at baseline secondary to her chronic baseline lower blood pressures and reports she has had a couple episodes of mild lightheadedness upon standing initially but states this resolves after a couple seconds and this is her baseline. She denies any further episodes of presyncope since her isolated episode on day one post op when she first got out of bed to work with physical therapy. Patient and her at bedside were educated on importance of changing positions slowly from lying to sitting, sit ting before standing, and standing before walking and caution with bending over as she will also need to rise slowly to prevent dizziness. Patient verbalizes understanding reports she has been told this by her PCP as well multiple times in the past. Patient reports she is ready to go home and denies having any home care needs stating she has support from her . Patient being discharged home with [facility] visiting nursing along with PT/OT Patient states Vital signs reviewed and stable. General: Nontoxic, no distress and appears stated age. Derm: Skin warm and dry, normal coloration for ethnicity. Head: Atraumatic, normocephalic and symmetric. Eyes: EOM's intact, no lid lag, and anicteric sclera Mouth: no lip lesions, mucus membranes moist Cardiovascular: regular rate and rhythm with normal S1S2, no murmur, positive posterior tibial pulses bilaterally, and cap refill < 2 seconds. Lungs: Respirations even, regular, and unlabored on room air. Lungs CTA bilaterally, no rhonchi, no rales, no wheezing, and no accessory muscle usage. Abdominal: soft, nontender to palpation, no guarding, no appreciable organomegaly Ext: No gross muscle atrophy, no edema, no contractures. Movement and sensation intact. Neuro: Speech clear, face symmetrical and CN II-XII grossly intact with no noted focal neuro deficits Psych: Alert and oriented to person, place, time, and situation. Appropriate and pleasant affect. Assessment and Plan of Care: Status post left hip cemented hemiarthroplasty -Management per primary admitting orthopedic surgery team including DVT prophylaxis, pain management, wound/dressing management, weightbearing, and PT/OT. -Currently on DVT prophylaxis with aspirin 81 mg twice daily. Syncope/presyncope, secondary to vasovagal event vs orthostatic hypotension - Pt had a reported presyncopal/syncopal episode when she got up with physical therapy day one post-op (09/22/24). It was reported that upon pt standing and getting up with PT for the first time post op, she "passed out" for a couple of seconds. Patient did not fall or hit her head, physical therapy was there and holding onto patient and immediately assisted her safely back into bed. Patient immediately awoken and was found to have hypotension with a reported blood pressure 80 systolic and a stable glucose of 111. After a few moments blood pressure increased to 108/63 with heart rate of 98. -Patient free from any other complaints, she reports feeling a little shaky and weak but denied having any dizziness, lightheadedness, chest pain, palpitations, shortness of breath, or experiencing any focal numbness/tingling/weakness. -Patient remains free from any further episodes of hypotension or syncopa l/presyncopal episodea and free from any neuro/cardiac complaints -Orthostatic vitals negative. -Maintain fall precautions. -Continue BETSEY hose to bilateral lower extremities. Acute postoperative blood loss anemia on anemia of chronic disease, stable and expected finding -Preoperative hemoglobin was 11.1 with postoperative hemoglobin decreasing down to 7.9. No active bleeding noted, no need for transfusion at this time. Patient started on ferrous sulfate 325 mg daily. Iron profile sent to lab but unavailable for results at time of discharge Hypochloremic hyponatremia -Resolved after gentle IV fluid hydration. Will continue to monitor closely with repeat a.m. labs and place additional orders if indicated based upon these findings. Hypothyroidism -Continue levothyroxine 88 mcg daily. Data and imaging reviewed: Labs reviewed. CBC showing hemoglobin of 7.9, hematocrit 24.4, MCV 100.8, MCH 32.6. BMP unremarkable. Magnesium 1.8. Vital signs reviewed. Blood pressure 112/65 heart rate 1 2 respiratory rate 18, temp 97.5 F, and SpO2 of 97% on room air. Orthostatic vitals completed this morning were negative for orthostatic hypotension. Thank you for allowing us to participate in the care of this pleasant patient. Do not hesitate to contact us with questions. Someone can be reached from the [facility] hospitalist group all hours of the day at [phone] or via [employer]. Patient was seen independently by Nurse Pracitioner. This document was prepared using [employer] dictation software. Please allow for errors in rehab aide, while rare they do occur. Gonzales Conley NP rendered care for this patient independently, reviewed the findings and plan as documented in the note above and agree with plan. I did not physically speak with or examine the patient on this date. Objective - Vital Signs Vital signs: Vital Signs Temp 97.5 F L 09/24/24 07:00 Pulse 102 H 09/24/24 07:00 Resp 18 09/24/24 07:00 BP 112/65 09/24/24 07:00 Pulse Ox 97 09/24/24 07:00 FiO2 Intake & Output 09/23/24 09/24/24 09/24/24 18:59 06:59 18:59 Other: # Voids 1 2 # Bowel Movements 1 - Labs CBC & Chem 7: 09/24/24 02:50 09/23/24 03:39 Labs: Abnormal Lab Results - Last 24 Hours (Table) 09/24/24 Range/Units 02:50 RBC 2.42 L (4.10-5.20) X 10*6/uL Hgb 7.9 L (12.0-15.0) g/dL Hct 24.4 L (37.2-46.3) % MCV 100.8 H (80.0-97.0) FL MCH 32.6 H (27.0-32.0) pg
[2024-09-24 15:48] LABS: % Iron Saturation 5.7 (12.00-45.00)
== END 2024-09-24 11:34 | disposition home health service (06) | DRG 522 ==
LOC: EC 17:23 → OBSVTOIN 21:18 → 4SSUR 21:18
PROVIDERS: ADMIT Orthopaedic Surgery; ATTEND Orthopaedic Surgery
PROC: 0SRS0J9 Replacement of Left Hip Joint, Femoral Surface with Synthetic Substitute, Cemented, Open Approach (ICD-10-PCS; principal; 2024-09-20)
DX: S72.012A Unspecified intracapsular fracture of left femur, initial encounter for closed fracture (principal); D62 Acute posthemorrhagic anemia; E03.9 Hypothyroidism, unspecified; D63.8 Anemia in other chronic diseases classified elsewhere; E87.1 Hypo-osmolality and hyponatremia; E16.2 Hypoglycemia, unspecified; W01.0XXA Fall on same level from slipping, tripping and stumbling without subsequent striking against object, initial encounter; Y92.009 Unspecified place in unspecified non-institutional (private) residence as the place of occurrence of the external cause; E87.8 Other disorders of electrolyte and fluid balance, not elsewhere classified; G89.29 Other chronic pain; Z79.82 Long term (current) use of aspirin; Z79.890 Hormone replacement therapy; Z87.442 Personal history of urinary calculi; Z96.691 Finger-joint replacement of right hand; Z28.310 Unvaccinated for COVID-19; Z88.1 Allergy status to other antibiotic agents; Z88.5 Allergy status to narcotic agent; Z88.2 Allergy status to sulfonamides; Z88.8 Allergy status to other drugs, medicaments and biological substances; Z79.899 Other long term (current) drug therapy
CPT/HCPCS: 64450; 64473; 71045; 72170; 73501; 73502; 80048; 83540; 83550; 83735; 85025; 85027; 85610; 85730; 86850; 86900; 86901; 96360; 99285

== ENCOUNTER → 2024-11-20 | Outpatient (CLI) | payer MEDICARE ==
--- NOTE | 2024-11-21 00:02 | US ---
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 Patient had left sided kidney stones removed in June and July of 2024. TECHNIQUE: Grayscale imaging of the bilateral kidneys and urinary bladder: FINDINGS: EXAM MEASUREMENTS: Right Kidney: 8.5 x 3.5 x 4.1 cm Left Kidney: 9.4 x 5.0 x 4.6 cm Exam limited by bowel gas. Right Kidney: Two anechoic areas seen within the right kidney First area seen at superior pole measuring 4.0 x 3.5 x 3.9 cm Second area seen at superior/mid pole measuring 1.4 x 1.4 x 1.4 cm Left Kidney: Anechoic area seen at superior pole measuring 2.0 x 1.9 x 1.4 cm Bladder: wnl Bilateral Jets seen: Yes Urinary bladder is sonolucent. IMPRESSION: Superior pole right renal cysts [facility], , 11/20/2024 11:59 PM
== END | disposition home or self-care (01) ==
LOC: RADUSWWP 09:42
PROVIDERS: ATTEND Urology
DX: N20.0 Calculus of kidney (principal); N28.1 Cyst of kidney, acquired
CPT/HCPCS: 76770